=== PATIENT | male | born 1955 | race Caucasian/White ===

== ENCOUNTER 2017-03-02 09:49 | Day surgery (SDC) | payer MEDICARE ==
[2017-03-01 11:36] VITALS: BMI 22.0
[~2017-03-02 09:49] MED LIST: DEXAMETHASONE SOD PHOSPHATE 10 MG/ML 1 ML VIAL IV ONE; HYDROmorphone 1 MG/ML 1 ML SYRINGE IVP PRN; LACTATED RINGERS 1,000 ML IV SCH; LIDOCAINE 1% 20 ML VIAL (10MG/ML) FOR IV START INTRADERMA PRN; ONDANSETRON 4 MG/2 ML VIAL IVP ONE; Pre Op ABX Message 1 EACH MISC MISCELLANE ONE
--- NOTE | 2017-03-02 10:14 | XR ---
EXAMINATION TYPE: XR KUB DATE OF EXAM: 03/02/2017 CLINICAL HISTORY: Bladder stone presurgical study. TECHNIQUE: 2 supine KUB images of the abdomen are obtained. COMPARISON: CT abdomen and pelvis May 13, 2016 FINDINGS: There is left-sided pelvic phlebolith redemonstrated. There is persistent 6 mm oval bladder calculus. There are 3-4 calculi superior L3 vertebra correlates with right-sided renal calculi measu ring up to 6 mm in size likely mid pole level, suspect obscured additional calculi lower pole level r ight kidney near L3-L4 disc space. No definite left-sided nephrolithiasis though overlying fecal kanika en makes evaluation suboptimal. Tiny calculus seen on prior CT. Sclerosis right L5 transverse process articulation with superior iliac bone is redemonstrated. IMPRESSION: Persistent 6 mm bladder calculus unchanged from comparison CT.
[2017-03-02] MEDS ORDERED: MIDAZOLAM 2 MG/2 ML VIAL ONE (13:54)
[2017-03-02] MEDS ORDERED: LIDOCAINE 1% INJ 10MG/ML (20 ML MDV) ONE (13:54)
[2017-03-02] MEDS ORDERED: PROPOFOL 10 MG/ML 20 ML VIAL IV ONE (13:54)
[2017-03-02] MEDS ORDERED: fentaNYL (PF) 50 MCG/ML 2 ML AMP ONE (13:54)
[2017-03-02] MEDS ORDERED: LACTATED RINGERS 1,000 ML IV ONE (14:17)
--- NOTE | 2017-03-02 14:19 | P.OP ---
Date of Procedure: 03/02/17 Preoperative Diagnosis: Neurogenic bladder, bladder stone, small Postoperative Diagnosis: Same Procedure(s) Performed: Cystoscopy with cystolithotripsy, laser Implants: Anesthesia: MAC Surgeon: Elder Painter Estimated Blood Loss (ml): 10 Pathology: other (Stone) Condition: stable Disposition: PACU Indications for Procedure: The patient is a 61-year-old, quadriplegic with a neurogenic bladder on CIC with a bladder stone Operative Findings: Description of Procedure: Patient brought operating suite and placed on the operating table supine position. He is given IV sedation. Placed lithotomy position with sterile prep and drape. Cystoscopy Foroblique lens and an 17-Nigerian sheath identifies a normal urethra. The prostate is not obstructing. There is some scar tissue in the bulbar urethra that is manipulated through with the scope. The bladder is entered. There is a 1-1/2 cm bladder stone. With the 365 laser probe and 4 W of energy the stone was broken into tiny pieces and irrigated out of the bladder. Then of the procedure the bladder strain the cystoscope was removed the patient awake and returned recovery in good condition be discharged home upon recovery. He'll resume his CIC and followed the office in one week.
[2017-03-02 14:29] VITALS: TEMP 97.2
[2017-03-02 15:02] VITALS: RESP 16
[2017-03-02 15:44] VITALS: BP 109/69; PULSE 85
== END 2017-03-02 16:04 | disposition home or self-care (01) ==
LOC: OR 09:49
PROVIDERS: ATTEND Urology
DX: N21.0 Calculus in bladder (principal); N20.0 Calculus of kidney; G82.50 Quadriplegia, unspecified; N31.9 Neuromuscular dysfunction of bladder, unspecified; N52.9 Male erectile dysfunction, unspecified; E78.2 Mixed hyperlipidemia; I71.4 Abdominal aortic aneurysm, without rupture; I25.10 Atherosclerotic heart disease of native coronary artery without angina pectoris; Z99.3 Dependence on wheelchair; Z87.440 Personal history of urinary (tract) infections; I25.2 Old myocardial infarction; Z95.1 Presence of aortocoronary bypass graft; Z79.899 Other long term (current) drug therapy; Z79.51 Long term (current) use of inhaled steroids; Z79.2 Long term (current) use of antibiotics; Z79.82 Long term (current) use of aspirin; Z88.5 Allergy status to narcotic agent; Z88.0 Allergy status to penicillin; Z88.8 Allergy status to other drugs, medicaments and biological substances; Z82.49 Family history of ischemic heart disease and other diseases of the circulatory system
CPT/HCPCS: 82365; 74000; 52317; J2250; J1100; J2405; J2001; J3010; J2704

== ENCOUNTER → 2018-04-03 | Outpatient (CLI) | payer MEDICARE ==
--- NOTE | 2018-04-03 15:01 | CT ---
EXAMINATION TYPE: CT abdomen pelvis wo con DATE OF EXAM: 04/03/2018 COMPARISON: 05/13/2016 HISTORY: Renal stone CT DLP: 756 mGycm Automated exposure control for dose reduction was used. TECHNIQUE: Helical acquisition of images was performed from the lung bases through the pelvis. FINDINGS: LUNG BASES: There is a tiny pericardial effusion and cardiomegaly. Linear changes involving the lung bases suggestive scar or atelectasis. LIVER/GB: Stable indeterminant 1.7 cm hypodense lesion in the peripheral right hepatic lobe as was se en on suggesting a benign etiology such as a cyst or hemangioma. PANCREAS: No significant abnormality is seen. SPLEEN: Splenic granuloma noted. ADRENALS: No significant abnormality is seen. KIDNEYS: Right kidney: There are areas of cortical loss compatible with chronic renal medical disease which co uld been the basis of previous infection or vascular injury. There is a stable 8 mm in adjacent 6 mm mid to lower pole right renal calculi with no evidence of hydronephrosis. Left kidney: Indeterminant 1.2 cm hypodense lesion along the left renal midpole is stable. Appears to been present on 09/11/2014 suggesting probable underlying cyst. Previously noted tiny punctate calci fication within the left kidney not seen with certainty. However, a 1 mm upper pole calculus on coron al image 47 is noted. Additional tiny hypodense area within the mid posterior cortex is too small to characterize axial image 45.. URINARY BLADDER: Bladder wall is thickened correlate for cystitis. PELVIC ADENOPATHY: None visualized. OSSEOUS STRUCTURES: Multilevel severe degenerative disc disease and hypertrophic changes are noted. There is sclerosis involving T11 and T12 vertebral segment. Stable compared to the prior exam. And un changed relative to the CT scan of 2014 and likely discogenic rather than metastatic. Multilevel face t arthropathy, degenerative disc disease and canal stenosis with foraminal encroachment suspected. Arthropathy of the hips noted Calcification within the thecal sac L5 level is retrospectively stable tiny possible calcified mening ioma or calcified disc fragment in the differential diagnosis. BOWEL: Bowel gas pattern nonspecific. There is mild induration of the fat adjacent to the splenic fle xure and left colon which could be associated with a mild colitis or diverticulitis correlate clinica lly. OTHER: Aorta of normal caliber. Asymmetric thickening of the musculature along the right pubic ramus appears chronic and unchanged fr om 2014. Correlate for pain or muscular injury. IMPRESSION: 1. Stable nonobstructing right-sided renal calculus measuring 8 and 6 mm respectively within the katherine x or distal infundibulum. 2. Tiny 1 mm upper pole left renal calculus with no hydronephrosis. 3. Diffuse bladder wall thickening correlate for cystitis. 4. Multilevel degenerative disc disease with multilevel canal stenosis and foraminal encroachment. 5. Stable hepatic and left renal lesions unchanged from prior exam. 6. There is mild induration of the fat adjacent to the splenic flexure of the colon. Correlate for mi ld diverticulitis or colitis. A Yellow level critical message alert has been initiated for Elder Painter MD via the [employer] Critical Results System on 04/03/2018 2:57 PM. This message alert has been sent to Elder Painter MD via the preferences provided by the clinician for the receipt of Radiology Critical Findings. rVita e ID [id number].
== END | disposition home or self-care (01) ==
LOC: RADCTMAIN 13:52
PROVIDERS: ATTEND Urology
DX: N20.0 Calculus of kidney (principal); N32.89 Other specified disorders of bladder; K76.89 Other specified diseases of liver
CPT/HCPCS: 74176

== ENCOUNTER → 2018-05-01 | Outpatient (CLI) | payer MEDICARE ==
[2018-05-01 20:31] LABS: Basophils % (A) 1 %; Eosinophils % (A) 1 %; Lymphocytes % (A) 23 %; MCH 28.3 pg (25.0-35.0); MCHC 32.6 g/dL (31.0-37.0); MCV 86.8 fL (80.0-100.0); Mean Platelet Volume 6.8; Monocytes # (A) 0.4 k/uL (0-1.0); Monocytes % (A) 9 %; Neutrophils # (A) 2.7 k/uL (1.3-7.7); Neutrophils % (A) 65 %; Platelet Count 198 k/uL (150-450); RBC 4.26 m/uL (4.30-5.90); RDW 14.2 % (11.5-15.5); WBC 4.2 k/uL (3.8-10.6)
[2018-05-01 20:38] LABS: Anion Gap 5 mmol/L; Blood Urea Nitrogen 14 mg/dL (9-20); Carbon Dioxide 30 mmol/L (22-30); Chloride 99 mmol/L (98-107); Sodium 134 mmol/L (137-145)
[2018-05-01 20:40] LABS: Appearance,Urine Cloudy (Clear); Bilirubin,Urine Negative (Negative); Blood,Urine Small (Negative); Color,Urine Yellow; Glucose,Urine (UA) Negative (Negative); Hyaline Casts,Urine 13 /lpf (0-2); Ketones,Urine Negative (Negative); Leukocyte Esterase,Urine Large (Negative); Mucus,Urine Rare /hpf; Nitrite,Urine Negative (Negative); PH, Urine 6.5 (5.0-8.0); Protein,Urine Negative (Negative); RBC,Urine 6 /hpf (0-5); Specific Gravity,Urine 1.011 (1.001-1.035); Squamous Epithelial Cell,Urine 1 /hpf (0-4); Urobilinogen,Urine <2.0 mg/dL (<2.0); WBC,Urine >182 /hpf (0-5)
== END | disposition home or self-care (01) ==
LOC: LABMAIN 18:45
PROVIDERS: ATTEND Urology
DX: N20.0 Calculus of kidney (principal)
CPT/HCPCS: 36415; 80051; 81001; 82565; 84520; 85025; 87086

== ENCOUNTER → 2018-10-04 | Outpatient (CLI) | payer MEDICARE ==
--- NOTE | 2018-10-04 15:22 | MR ---
EXAMINATION TYPE: MR cervical spine wo con DATE OF EXAM: 10/04/2018 COMPARISON: None HISTORY: CERVICALGIA TECHNIQUE: Multiplanar, multisequence images of the cervical spine were acquired. FINDINGS: The cervical spine vertebral bodies maintain normal alignment. There is slight vertebral alecia dy height loss of the C6 vertebral body with height loss of 20% at its anterior margin without retrop ulsion or bone marrow edema indicating chronicity.. Bone marrow signal is within normal limits other than a T1/T2 hyperintense vertebral body hemangioma of T1. Multilevel disc desiccation is seen. There is a large T2 hyperintense and T1 hypointense intramedullary lesion within the spinal cord, pos sible syrinx, spanning the C2-C3 intervertebral disc space to the C5 vertebral level measuring 3.8 cm . Abnormal signal within the spinal cord extends from the mid to low to the C7 vertebral level overal l measuring approximately 10.4 cm in length. There is significant volume loss of the spinal cord thro ughout the cervical spine. C2-C3: There is a small central disc ossify complex narrowing the ventral subarachnoid space without significant spinal canal stenosis. Abnormal spinal cord signal is described above. No neural foramina l narrowing. C3-C4: There is a small central disc osteophyte complex, uncovertebral hypertrophy and facet arthropa thy resulting in mild bilateral neural foraminal narrowing. No spinal canal stenosis. Abnormal spinal cord signal is described above. C4-C5: There is a posterior disc osteophyte complex and broad-based disc bulge in combination with li gamentum flavum buckling create moderate spinal canal stenosis. Uncovertebral hypertrophy and facet a rthropathy result in moderate right and mild left neural foraminal narrowing. Abnormal spinal cord si gnal is described above. C5-C6: There is a large broad-based disc bulge, uncovertebral hypertrophy and facet arthropathy resul ting in severe left neural foraminal narrowing, moderate right neural foraminal narrowing, and modera te spinal canal stenosis. Abnormal spinal cord signal is described above. C6-C7: There is a large broad-based disc bulge, facet arthropathy and uncovertebral hypertrophy creat ing severe bilateral neural foraminal narrowing and moderate spinal canal stenosis. Abnormal spinal c ord signal is described above. C7-T1: No evidence for degenerative disc disease. No disc bulge/herniation or protrusion. No Canal stenosis. Foramina are patent bilaterally. IMPRESSION: 1. Large 3.8 cm cystic intramedullary spinal cord lesion in the upper cervical spinal cord with edema and encephalomalacia in a long segment involving the entirety of the cervical spinal cord and extend ing into the lingula. Although there is multilevel spinal canal stenosis, degree of edema and encepha lomalacia are prominent for the degree of spinal canal stenosis and therefore findings could relate t o an acquired syrinx, spinal cord edema, and spinal cord myelomalacia or cystic intramedullary neopla sm. Post contrast T1 weighted axial and sagittal sequences are recommended to evaluate for any enhanc ement. 2. Multilevel spinal canal stenosis and extensive degenerative disc disease with variable degrees of neural foraminal narrowing as described above.
== END ==
LOC: RADMRIMAIN 13:40
PROVIDERS: ATTEND Physical Medicine & Rehabilitation
DX: M48.02 Spinal stenosis, cervical region (principal); M99.71 Connective tissue and disc stenosis of intervertebral foramina of cervical region; M50.30 Other cervical disc degeneration, unspecified cervical region; M46.92 Unspecified inflammatory spondylopathy, cervical region
CPT/HCPCS: 72141

== ENCOUNTER → 2019-02-22 | Outpatient (CLI) | payer MEDICARE ==
--- NOTE | 2019-02-23 07:17 | MR ---
EXAMINATION TYPE: MR cervical spine wo/w con DATE OF EXAM: 02/22/2019 COMPARISON: HISTORY: Cervicalgia TECHNIQUE: Multiplanar, multisequence images of the cervical spine were acquired utilizing 7 mL intravenous Gada vist gadolinium contrast. Diffusion weighted imaging was performed. Cervical vertebra have normal alignment. There is very slight loss of height of C5 vertebra consisten t with osteoporosis. 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 There is endplate spur formation s kike stenosis from C4 to C7. Spinal stenosis is most severe at C6-7. The canal measures 5 mm. I see no discrete mass of the cervical spinal cord. There is significant edema in the cervical cord at C1 a nd C2 posteriorly. The brainstem appears intact. Fourth ventricle appears normal. The contrast images show no pathologic enhancement. IMPRESSION: Multilevel spondylotic changes. Multilevel spinal stenosis that is more severe at C6-7 which measures 5 mm. There is a long syrinx of the cervical spinal cord. This appears unchanged compared to last exam. Spi nal stenosis unchanged. Mild compression of C5 vertebra unchanged. No evidence of tumor of the cervic al spinal cord.
== END | disposition home or self-care (01) ==
LOC: RADMRIMAIN 14:34
PROVIDERS: ATTEND Physical Medicine & Rehabilitation
DX: M48.02 Spinal stenosis, cervical region (principal); G95.0 Syringomyelia and syringobulbia; G95.29 Other cord compression
CPT/HCPCS: 72156; A9585

== ENCOUNTER 2019-05-31 14:09 | Inpatient (IN) | payer MEDICARE ==
[2019-05-31] MEDS ORDERED: SODIUM CHLORIDE 0.9% 500 ML 500 ML IV STA (14:41)
--- NOTE | 2019-05-31 15:10 | ED ---
General Adult HPI - General Chief complaint: Headache Stated complaint: Arm numbness, headache, sent by Time Seen by Provider: 05/31/19 14:33 Source: patient Mode of arrival: wheelchair Limitations: no limitations - History of Present Illness Initial comments: 63-year-old male patient with history significant for cervical injury with quadriplegia, and frequent UTIs presents to the emergency department today for evaluation of headache and left arm numbness. Patient states that he developed headache yesterday at the base of his skull. Patient states the pain was quite severe. Patient states he woke today headache still present but improved. St ates he also had numbness to the left arm. Patient states that he generally has feeling over the volar aspect of the arm however this morning when he woke up felt numb and tingly. Patient states his motor function is intact at his baseline. Patient states he did see his primary care physician today who sent him here for further evaluation. Patient denies any dizziness, blurred vision, double vision, nausea, vomiting. Denies any chest pain, shortness of breath, abdominal pain, constipation, or diarrhea. Patient denies any recent head injury. Denies family history of cardiac disease or CVA. Patient denies any recent rash, fever, chills, back pain, hematuria, dysuria, urinary urgency, ur inary frequency, headache, visual changes, or any other complaints. Patient also has history of frequent urinary tract infections and his physician is requesting urinalysis. - Related Data Home Medications Medication Instructions Recorded Confirmed Oxybutynin Chloride [Ditropan] 5 mg PO HS 03/01/17 05/31/19 Imipramine HCl [Tofranil] 10 mg PO HS 05/31/19 05/31/19 Loratadine [Claritin] 10 mg PO HS 05/31/19 05/31/19 Allergies Allergy/AdvReac Type Severity Reaction Status Date / Time No Known Allergies Allergy Verified 05/31/19 17:20 Review of Systems ROS Statement: Those systems with pertinent positive or pertinent negative responses have been documented in the HPI. ROS Other: All systems not noted in ROS Statement are negative. Past Medical History Past Medical History: Neurologic Disorder Additional Past Medical History / Comment(s): BLADDER STONE -FREQUENT UTI'S QUADRIPLEGIC - FRACTURE OF C6 AND C7 History of Any Multi-Drug Resistant Organisms: None Reported Past Surgical History: Hernia Repair Additional Past Surgical History / Comment(s): LITHROTRIPSY Past Anesthesia/Blood Transfusion Reactions: No Reported Reaction Past Psychological History: No Psychological Hx Reported Smoking Status: Never smoker Past Alcohol Use History: Occasional Past Drug Use History: None Reported - Past Family History Mother Family Medical History: No Reported History General Exam Limitations: no limitations General appearance: alert, in no apparent distress, other (This is a well- developed, well-nourished adult male patient in no acute distress. Vital signs upon presentation are temperature 99.2F, pulse 64, respirations 18, blood pressure 108/70, pulse ox 99% on room air.) Eye exam: Present: normal appearance, PERRL, EOMI. Absent: scleral icterus, conjunctival injection, periorbital swelling ENT exam: Present: normal exam, normal oropharynx, mucous membranes moist Neck exam: Present: normal inspection, full ROM. Absent: tenderness, meningismus, lymphadenopathy Respiratory exam: Present: normal lung sounds bilaterally. Absent: respiratory distress, wheezes, rales, rhonchi, stridor Cardiovascular Exam: Present: regular rate, normal rhythm, normal heart sounds. Absent: systolic murmur, diastolic murmur, rubs, gallop, clicks GI/Abdominal exam: Present: soft, normal bowel sounds. Absent: distended, tenderness, guarding, rebound, rigid Extremities exam: Present: normal inspection, full ROM, normal capillary refill. Absent: tenderness, pedal edema, joint swelling, calf tenderness Neurological exam: Present: alert, oriented X3, other (Strength in the upper extremities is 3/5.) Psychiatric exam: Present: normal affect, normal mood Skin exam: Present: warm, dry, intact, normal color. Absent: rash Course Vital Signs 05/31/19 05/31/19 05/31/19 14:16 15:03 16:00 Temperature 99.2 F Pulse Rate 64 64 71 Respiratory 18 16 20 Rate Blood Pressure 108/70 106/75 106/75 O2 Sat by Pulse 99 98 99 Oximetry 05/31/19 17:00 Temperature Pulse Rate 77 Respiratory 18 Rate Blood Pressure 132/90 O2 Sat by Pulse 99 Oximetry EKG Findings - EKG Comments: EKG Findings:: EKG obtained at normal sinus rhythm with a ventricular rate of 68, TN interval 178, QRS duration 92, QT 388, QTc 412. No evidence of ST elevation or depression. Medical Decision Making - Medical Decision Making 63-year-old male patient presents to the emergency department today for evaluation of left arm numbness, headache, and possible urinary tract infection. Physical examination was unremarkable. He does have quadriplegia from a old C6 to 7 injury. Patient reports that his motor function is normal however he does have tingling and numbness to the left arm. Patient does have sensation. Labs reviewed and are relatively unremarkable other than evidence for urinary tract infection. Patient has had urine cultures in the past positive for pseudomonas aeruginosa. He'll be started on Zosyn. He'll be admitted to the hospital for further evaluation. - Lab Data Result diagrams: 05/31/19 15:00 05/31/19 15:00 Lab Results 05/31/19 05/31/19 05/31/19 Range/Units 15:00 15:00 15:00 WBC 6.8 (3.8-10.6) k/uL RBC 4.09 L (4.30-5.90) m/uL Hgb 11.4 L (13.0-17.5) gm/dL Hct 35.3 L (39.0-53.0) % MCV 86.2 (80.0-100.0) fL MCH 27.8 (25.0-35.0) pg MCHC 32.3 (31.0-37.0) g/dL RDW 14.0 (11.5-15.5) % Plt Count 190 (150-450) k/uL Neutrophils % 81 % Lymphocytes % 9 % Monocytes % 8 % Eosinophils % 1 % Basophils % 1 % Neutrophils # 5.5 (1.3-7.7) k/uL Lymphocytes # 0.6 L (1.0-4.8) k/uL Monocytes # 0.6 (0-1.0) k/uL Eosinophils # 0.0 (0-0.7) k/uL Basophils # 0.0 (0-0.2) k/uL PT 10.1 (9.0-12.0) sec INR 0.9 (<1.2) APTT 28.1 (22.0-30.0) sec Sodium 134 L (137-145) mmol/L Potassium 3.7 (3.5-5.1) mmol/L Chloride 103 (98-107) mmol/L Carbon Dioxide 23 (22-30) mmol/L Anion Gap 8 mmol/L BUN 15 (9-20) mg/dL Creatinine 0.46 L (0.66-1.25) mg/dL Est GFR (CKD-EPI)AfAm >90 (>60 ml/min/1.73 sqM) Est GFR (CKD-EPI)NonAf >90 (>60 ml/min/1.73 sqM) Glucose 88 (74-99) mg/dL Calcium 8.5 (8.4-10.2) mg/dL Magnesium 2.0 (1.6-2.3) mg/dL Total Bilirubin 1.5 H (0.2-1.3) mg/dL AST 18 (17-59) U/L ALT 16 L (21-72) U/L Alkaline Phosphatase 95 (38-126) U/L Troponin I (0.000-0.034) ng/mL Total Protein 6.6 (6.3-8.2) g/dL Albumin 3.5 (3.5-5.0) g/dL Urine Color Urine Appearance (Clear) Urine pH (5.0-8.0) Ur Specific [place] (1.001-1.035) Urine Protein (Negative) Urine Glucose (UA) (Negative) Urine Ketones (Negative) Urine Blood (Negative) Urine Nitrite (Negative) Urine Bilirubin (Negative) Urine Urobilinogen (<2.0) mg/dL Ur Leukocyte Esterase (Negative) Urine RBC (0-5) /hpf Urine WBC (0-5) /hpf Urine WBC Clumps (None) /hpf Ur Squamous Epith Cells (0-4) /hpf Urine Bacteria (None) /hpf Urine Mucus (None) /hpf Urine Yeast (Budding) (None) /hpf 05/31/19 05/31/19 Range/Units 15:00 15:00 WBC (3.8-10.6) k/uL RBC (4.30-5.90) m/uL Hgb (13.0-17.5) gm/dL Hct (39.0-53.0) % MCV (80.0-100.0) fL MCH (25.0-35.0) pg MCHC (31.0-37.0) g/dL RDW (11.5-15.5) % Plt Count (150-450) k/uL Neutrophils % % Lymphocytes % % Monocytes % % Eosinophils % % Basophils % % Neutrophils # (1.3-7.7) k/uL Lymphocytes # (1.0-4.8) k/uL Monocytes # (0-1.0) k/uL Eosinophils # (0-0.7) k/uL Basophils # (0-0.2) k/uL PT (9.0-12.0) sec INR (<1.2) APTT (22.0-30.0) sec Sodium (137-145) mmol/L Potassium (3.5-5.1) mmol/L Chloride (98-107) mmol/L Carbon Dioxide (22-30) mmol/L Anion Gap mmol/L BUN (9-20) mg/dL Creatinine (0.66-1.25) mg/dL Est GFR (CKD-EPI)AfAm (>60 ml/min/1.73 sqM) Est GFR (CKD-EPI)NonAf (>60 ml/min/1.73 sqM) Glucose (74-99) mg/dL Calcium (8.4-10.2) mg/dL Magnesium (1.6-2.3) mg/dL Total Bilirubin (0.2-1.3) mg/dL AST (17-59) U/L ALT (21-72) U/L Alkaline Phosphatase (38-126) U/L Troponin I <0.012 (0.000-0.034) ng/mL Total Protein (6.3-8.2) g/dL Albumin (3.5-5.0) g/dL Urine Color Yellow Urine Appearance Turbid (Clear) Urine pH 6.0 (5.0-8.0) Ur Specific [place] 1.015 (1.001-1.035) Urine Protein Trace H (Negative) Urine Glucose (UA) Negative (Negative) Urine Ketones Negative (Negative) Urine Blood Small H (Negative) Urine Nitrite Positive (Negative) Urine Bilirubin Negative (Negative) Urine Urobilinogen <2.0 (<2.0) mg/dL Ur Leukocyte Esterase Large H (Negative) Urine RBC 12 H (0-5) /hpf Urine WBC >182 H (0-5) /hpf Urine WBC Clumps Many H (None) /hpf Ur Squamous Epith Cells 2 (0-4) /hpf Urine Bacteria Many H (None) /hpf Urine Mucus Rare H (None) /hpf Urine Yeast (Budding) Moderate H (None) /hpf - Radiology Data Radiology results: report reviewed, image reviewed CT brain without contrast is obtained. Report was reviewed in its entirety. Impression by Dr. Huggins shows no acute intracranial hemorrhage or midline shift. There is mild diffuse age-related cerebral atrophy and chronic small vessel ischemic change noted. Two-view x-ray of the chest is obtained. Report is reviewed in its entirety. Impression by Dr. Huggins shows cardiomegaly without acute pulmonary process. Disposition Clinical Impression: Urinary tract infection, Arm paresthesia, left, Headache Disposition: ADMITTED IP TO THIS [facility] Condition: Serious Decision to Admit Reason: Admit from EC Decision Date: 05/31/19 Decision Time: 17:08
--- NOTE | 2019-05-31 15:25 | XR ---
EXAMINATION TYPE: XR chest 2V DATE OF EXAM: 05/31/2019 COMPARISON: CT abdomen pelvis April 03, 2018 HISTORY: Quadriplegia with chest pain. TECHNIQUE: Frontal and lateral views of the chest are obtained. FINDINGS: There is no focal air space opacity, pleural effusion, or pneumothorax seen. The cardiac silhouette size is enlarged. There is endplate sclerosis and spurring T10-T11 level with mild T11 hei ght loss redemonstrated. Findings may reflect product of old infection centered at this level. IMPRESSION: Cardiomegaly without acute pulmonary process.
--- NOTE | 2019-05-31 15:26 | CT ---
EXAMINATION TYPE: CT brain wo con DATE OF EXAM: 05/31/2019 HISTORY: Left arm numbness. CT DLP: 1129.4 mGycm. Automated Exposure Control for Dose Reduction was Utilized. TECHNIQUE: CT scan of the head is performed without contrast. COMPARISON: None. FINDINGS: There is no acute intracranial hemorrhage or midline shift identified. There is diffuse v entricular and sulcal prominence consistent with diffuse age-related cerebral atrophy. There is low- attenuation in the periventricular white matter consistent with chronic small vessel ischemic change. The globes are intact and the visualized sinuses are clear. IMPRESSION: No acute intracranial hemorrhage or midline shift. There is mild diffuse age-related ce rebral atrophy and chronic small vessel ischemic change noted.
[2019-05-31 16:00] LABS: ALT 16 U/L (21-72); AST 18 U/L (17-59); African American GFR (CKD) >90 (>60 ml/min/1.73 sqM); Albumin 3.5 g/dL (3.5-5.0); Alkaline Phosphatase 95 U/L (38-126); Anion Gap 8 mmol/L; Appearance,Urine Turbid (Clear); Bacteria,Urine Many /hpf; Bilirubin,Urine Negative (Negative); Blood Urea Nitrogen 15 mg/dL (9-20); Blood,Urine Small (Negative); Budding Yeast,Urine Moderate /hpf; Calcium 8.5 mg/dL (8.4-10.2); Carbon Dioxide 23 mmol/L (22-30); Chloride 103 mmol/L (98-107); Color,Urine Yellow; Glucose 88 mg/dL (74-99); Glucose,Urine (UA) Negative (Negative); INR 0.9 (<1.2); Ketones,Urine Negative (Negative); Leukocyte Esterase,Urine Large (Negative); Mucus,Urine Rare /hpf; Nitrite,Urine Positive (Negative); Partial Thromboplastin Time 28.1 sec (22.0-30.0); Potassium 3.7 mmol/L (3.5-5.1); Protein,Urine Trace (Negative); Prothrombin Time 10.1 sec (9.0-12.0); RBC,Urine 12 /hpf (0-5); Sodium 134 mmol/L (137-145); Specific Gravity,Urine 1.015 (1.001-1.035); Squamous Epithelial Cell,Urine 2 /hpf (0-4); Total Bilirubin 1.5 mg/dL (0.2-1.3); Total Protein 6.6 g/dL (6.3-8.2); Urobilinogen,Urine <2.0 mg/dL (<2.0); WBC,Urine >182 /hpf (0-5)
[2019-05-31] MEDS ORDERED: PIPERACILLIN-TAZOBACTAM 3.375 GM in SODIUM CHLORIDE 0.9% 100 ML IVPB STA (16:16)
[2019-05-31 16:17] LABS: Basophils % (A) 1 %; Eosinophils % (A) 1 %; HCT 35.3 % (39.0-53.0); HGB 11.4 gm/dL (13.0-17.5); Lymphocytes # (A) 0.6 k/uL (1.0-4.8); Lymphocytes % (A) 9 %; MCH 27.8 pg (25.0-35.0); MCHC 32.3 g/dL (31.0-37.0); MCV 86.2 fL (80.0-100.0); Mean Platelet Volume 7.5; Monocytes # (A) 0.6 k/uL (0-1.0); Monocytes % (A) 8 %; Neutrophils # (A) 5.5 k/uL (1.3-7.7); Neutrophils % (A) 81 %; Platelet Count 190 k/uL (150-450); RBC 4.09 m/uL (4.30-5.90); WBC 6.8 k/uL (3.8-10.6)
[2019-05-31] MEDS ORDERED: NALOXONE 0.4 MG/ML 1 ML VIAL IV PRN (17:08)
[2019-05-31] MEDS ORDERED: ONDANSETRON 4 MG/2 ML VIAL IVP PRN (17:08)
[2019-05-31] MEDS: SODIUM CHLORIDE 0.9% 1,000 ML IV SCH (17:29)
[2019-05-31] MEDS ORDERED: traMADol 50 MG TAB PO PRN (22:06)
[2019-05-31] MEDS: LORATADINE 10 MG TAB PO SCH (22:40)
[2019-05-31] MEDS: IMIPRAMINE 10 MG TAB PO SCH (22:40)
[2019-05-31] MEDS: OXYBUTYNIN CHLORIDE 5 MG TAB PO SCH (22:40)
--- NOTE | 2019-05-31 23:18 | P.HPIM ---
History of Present Illness H&P Date: 05/31/19 Chief Complaint: headache, and foul smelling urine 63-year-old male with history of recurrent UTI secondary to neurogenic bladder from quadriplegia secondary to neck injury 40 years ago Patient presented hospital upon recommendation of his PCP to rule out UTI. Patient has history of recurrent UTI he does straight cathing last urinary tract infection was 5 months ago was positive for Pseudomonas. Patient reports that he was noticing over the past few days that he's having some foul-smelling urine and turbid color. He does straight intermittent cathing at home. He tries to use sterile technique however he is cardioplegic and has some movement in his upper extremities and he would use both upper extremities to hold the straight cath for insertion so I doubt fully sterile technique. He reports some headache at home which is typical for his symptoms of urinary tract infection he had chills and low-grade fever. He denies any dysuria or abdominal pain because he doesn't feel anything secondary to loss of sensation from the level of the nipples and down. He otherwise denies any GI bleeding or hematuria. Denies any nausea or vomiting. Denies any new focal neurologic deficits denies any changes in his vision or hearing. He reports that his headache has improved down to 2 out of 10 in severity just generalized ache headache. In the ED his urine was positive patient was admitted for further treatment with antibiotic and following up cultures for further recommendations Review of Systems Pertinent positives as noted in HPI. All other systems were reviewed and are negative Past Medical History Past Medical History: Neurologic Disorder Additional Past Medical History / Comment(s): BLADDER STONE -FREQUENT UTI'S QUADRIPLEGIC - FRACTURE OF C6 AND C7 History of Any Multi-Drug Resistant Organisms: None Reported Past Surgical History: Hernia Repair Additional Past Surgical History / Comment(s): LITHROTRIPSY Past Anesthesia/Blood Transfusion Reactions: No Reported Reaction Past Psychological History: No Psychological Hx Reported Smoking Status: Never smoker Past Alcohol Use History: Occasional Past Drug Use History: None Reported - Past Family History Mother Family Medical History: No Reported History Additional Family Medical History / Comment(s): No cardiac disease Medications and Allergies Home Medications Medication Instructions Recorded Confirmed Type Oxybutynin Chloride [Ditropan] 5 mg PO HS 03/01/17 05/31/19 History Imipramine HCl [Tofranil] 10 mg PO HS 05/31/19 05/31/19 History Loratadine [Claritin] 10 mg PO HS 05/31/19 05/31/19 History Allergies Allergy/AdvReac Type Severity Reaction Status Date / Time No Known Allergies Allergy Verified 05/31/19 17:20 Physical Exam Vitals: Vital Signs Temp Pulse Pulse Resp BP BP Pulse Ox 05/31/19 21:04 96 05/31/19 19:10 97.9 F 73 17 138/91 97 05/31/19 17:00 77 18 132/90 99 05/31/19 16:00 71 20 106/75 99 05/31/19 15:03 64 16 106/75 98 05/31/19 14:16 99.2 F 64 18 108/70 99 Intake and Output 05/31/19 05/31/19 05/31/19 06:59 14:59 22:59 Other: Weight 72.575 kg Constitutional: No acute distress, conversant, pleasant Eyes: Anicteric sclerae, moist conjunctiva, no lid-lag Pupils equal round reactive to light ENMT: NC/AT Oropharynx clear, no erythema, or exudates Neck: Supple, FROM, no masses, or JVD No carotid bruits No thyromegaly Lungs: Clear to auscultation Clear to percussion Normal respiratory effort, no accessory muscle use Cardiovascular: Heart regular in rate and rhythm, No murmurs, gallops, or rubs No peripheral edema Abdominal: Soft Nontender, no guarding, rebound or rigidity Abdomen moving with respiration Normoactive bowel sounds No hepatomegaly, No splenomegaly No palpable mass No abdominal wall hernia noted Skin: Normal temperature, tone, texture, turgor No induration No subcutaneous nodules No rash, lesions No ulcers Extremities: No digital cyanosis No clubbing Pedal pulses intact and symmetrical Radial pulses intact and symmetrical No calf tenderness Psychiatric: Alert and oriented to person, place and time Appropriate affect fair judgment Neuro patient is quadriplegic with some movement in his bilateral upper extremity Sensation to light touch is absent from the level of the nipples and down, and only present on the medial aspect of bilateral upper extremities Cranial nerves II-XII grossly intact No focal sensory deficits Lymphatics: no palpable cervical or supraclavicular , or inguinal lymph nodes Results CBC & Chem 7: 05/31/19 15:00 05/31/19 15:00 Labs: Abnormal Lab Results - Last 24 Hours (Table) 05/31/19 05/31/19 05/31/19 Range/Units 15:00 15:00 15:00 RBC 4.09 L (4.30-5.90) m/uL Hgb 11.4 L (13.0-17.5) gm/dL Hct 35.3 L (39.0-53.0) % Lymphocytes # 0.6 L (1.0-4.8) k/uL Sodium 134 L (137-145) mmol/L Creatinine 0.46 L (0.66-1.25) mg/dL Total Bilirubin 1.5 H (0.2-1.3) mg/dL ALT 16 L (21-72) U/L Urine Protein Trace H (Negative) Urine Blood Small H (Negative) Ur Leukocyte Esterase Large H (Negative) Urine RBC 12 H (0-5) /hpf Urine WBC >182 H (0-5) /hpf Urine WBC Clumps Many H (None) /hpf Urine Bacteria Many H (None) /hpf Urine Mucus Rare H (None) /hpf Urine Yeast (Budding) Moderate H (None) /hpf Assessment and Plan Assessment: 63 -year-old male quadriplegic secondary to neck injury 40 years ago, neurogenic bladder with intermittent catheterization at home with recurrent UTIs. Patient admitted as an inpatient with anticipated length of stay more than 2 mid nights for UTI with history of Pseudomonas patient was started on Zosyn and supportive care follow-up cultures Plan: recurrent UTI, history of pseudomonas follow up cultures intermittent straight cath zosyn symptomatic control of fever chronic conditions quadreplegia continue home meds DVT ppx heparin sc tid CODE STATUS: No code Discussed with: Patient, ER, RN Anticipated length of stay more than [address]: Home A total of 60 minutes was spent on the care of this complex patient more than 50% of the time was spent in counseling and care coordination.
--- NOTE | 2019-05-31 23:31 | P.HPADDEND ---
H&P Addendum H&P Addendum Date: 05/31/19 Advanced Care Planning Active diagnoses: Acute recurrent UTI with history of Pseudomonas Background: The patient was admitted for treatment of UTI Discussion: Person(s) present and participating in discussion: The patient, and myself. Summary: Patient is quadriplegic for the past 4 years secondary to injury to the neck, he does intermittent straight cathing at home he lives alone at a private home, he rented a room for a roommate. Patient reports that he gets help from his sister who visits occasionally to clean the house. He does self intermittent catheterization as he can move his upper extremities for certain extent and he has been doing this for the past 4 years however he gets frequent UTI. I explained to him that probably his technique not very sterile. Patient elected to be a no code in case he experiences cardiopulmonary arrest. Patient wants to go home after discharge and refused home health care evaluation or referral. He claims that he got everything set up at his home and that he has never been hospitalized except for back in 1981 when he had the pneumonia. Patient has been self-sufficient he manages to transfer himself from bed to wheelchair and to bathe himself and even cooks sometimes. Time spent: Total time spent face to face in education and discussion directly related to advanced care plannin minutes
[2019-05-31] MEDS: PIPERACILLIN-TAZOBACTAM 3.375 GM in SODIUM CHLORIDE 0.9% 100 ML IVPB SCH (23:55)
[2019-05-31] MEDS: HEPARIN SODIUM,PORCINE 5,000 UNIT/ML 1 ML VIAL SQ SCH (23:56)
[2019-06-01] MEDS: PIPERACILLIN-TAZOBACTAM 3.375 GM in SODIUM CHLORIDE 0.9% 100 ML IVPB SCH ×3 (07:54→23:32)
[2019-06-01] MEDS: HEPARIN SODIUM,PORCINE 5,000 UNIT/ML 1 ML VIAL SQ SCH ×3 (07:54→23:31)
--- NOTE | 2019-06-01 13:13 | P.PN ---
Subjective Progress Note Date: 06/01/19 Principal diagnosis: UTI Patient was seen and examined. No acute events overnight. Patient denies any symptoms currently. States that his urine appeared to be infected and was malodorous but patient states that he feels fine. He denies any chest pain, shortness of breath or palpitations. No nausea or vomiting. No fever or chills. Objective - Vital Signs Vital signs: Vital Signs Temp 98.8 F 06/01/19 07:05 Pulse 79 06/01/19 07:05 Resp 16 06/01/19 07:05 BP 120/78 06/01/19 07:57 Pulse Ox 97 06/01/19 07:05 Intake & Output 05/31/19 06/01/19 06/01/19 18:59 06:59 18:59 Intake Total 1050 220 Output Total 200 900 Balance 850 -680 Weight 72.575 kg Intake: Intake, IV Titration 950 Amount Piperacillin-Tazobactam 3 100 .375 gm In Sodium Chloride 0.9% 100 ml @ 25 mls/hr IVPB Q8HR [facility]FF[facility] Rx# :[id number] Sodium Chloride 0.9% 1, 850 000 ml @ 100 mls/hr IV . Q10H TIFFANIE Rx#:[id number] Oral 100 220 Output: Urine 200 900 Other: Voiding Method Self-Catheterization Self-Catheterization # Voids 1 1 # Bowel Movements 1 - Exam General: [non toxic], [no distress], [appears at stated age] Derm: [warm], [dry] Head: [atraumatic], [normocephalic], [symmetric] Eyes: [EOMI], [no lid lag], [anicteric sclera] Mouth: [no lip lesion], [mucus membranes moist] Cardiovascular: [S1S2 reg], [no murmur], [positive posterior tibial pulse bilateral], Lungs: [CTA bilateral], [no rhonchi, no rales] , [no accessory muscle use] Abdominal: [soft], [ nontender to palpation], [no guarding], [no appreciable organomegaly] Ext: [no gross muscle atrophy], [no edema], [no contractures] Neuro: [Limited movement in the upper extremity. 0 strength in lower extremities. Decreased sensation to touch below the nipples. Cranial nerves II-12 grossly intact.] Psych: [Alert], [oriented], [appropriate affect] - Labs CBC & Chem 7: 05/31/19 15:00 05/31/19 15:00 Labs: Abnormal Lab Results - Last 24 Hours (Table) 05/31/19 05/31/19 05/31/19 Range/Units 15:00 15:00 15:00 RBC 4.09 L (4.30-5.90) m/uL Hgb 11.4 L (13.0-17.5) gm/dL Hct 35.3 L (39.0-53.0) % Lymphocytes # 0.6 L (1.0-4.8) k/uL Sodium 134 L (137-145) mmol/L Creatinine 0.46 L (0.66-1.25) mg/dL Total Bilirubin 1.5 H (0.2-1.3) mg/dL ALT 16 L (21-72) U/L Urine Protein Trace H (Negative) Urine Blood Small H (Negative) Ur Leukocyte Esterase Large H (Negative) Urine RBC 12 H (0-5) /hpf Urine WBC >182 H (0-5) /hpf Urine WBC Clumps Many H (None) /hpf Urine Bacteria Many H (None) /hpf Urine Mucus Rare H (None) /hpf Urine Yeast (Budding) Moderate H (None) /hpf Microbiology - Last 24 Hours (Table) 05/31/19 15:00 Urine Culture - Preliminary Urine,Voided Assessment and Plan Assessment: Assessment and Plan UTI, history of Pseudomonas, related to quadriplegia, intermittent catheter ization at home Left arm numbness with cervical pain Does not meet sepsis. UA showing large leukocyte esterase. Patient afebrile with no leukocytosis. Previous urine cultures positive Pseudomonas sensitive to Zosyn. Plans: Continue Zosyn. Continue normal saline at 100 mL per hour. Zofran as needed for nausea or vomiting. Follow urine culture. Follow blood culture. Being worked up by orthopedic surgery in the outpatient setting. States he had an MRI in the past that showed impingement of nerves. CT brain shows no acute intracranial hemorrhage. Troponin less than 0.012 with EKG showing normal sinus rhythm. Plans: Likely cervical spine related. Need adequate outpatient follow- up with orthopedic surgery. Trend troponin tomorrow morning to rule out ACS.
[2019-06-01] MEDS: SODIUM CHLORIDE 0.9% 1,000 ML IV SCH ×2 (14:17→20:27)
[2019-06-01] MEDS: IMIPRAMINE 10 MG TAB PO SCH (20:24)
[2019-06-01] MEDS: OXYBUTYNIN CHLORIDE 5 MG TAB PO SCH (20:24)
[2019-06-01] MEDS: LORATADINE 10 MG TAB PO SCH (20:24)
[2019-06-01 20:44] LABS: Glucose,Whole Blood 122 mg/dL (75-99)
[2019-06-02 07:12] LABS: HCT 34.1 % (39.0-53.0); HGB 11.7 gm/dL (13.0-17.5); MCH 29.6 pg (25.0-35.0); MCHC 34.4 g/dL (31.0-37.0); MCV 86.1 fL (80.0-100.0); Platelet Count 202 k/uL (150-450); RBC 3.96 m/uL (4.30-5.90); RDW 14.8 % (11.5-15.5); WBC 4.3 k/uL (3.8-10.6)
[2019-06-02 07:22] LABS: African American GFR (CKD) >90 (>60 ml/min/1.73 sqM); Anion Gap 6 mmol/L; Blood Urea Nitrogen 9 mg/dL (9-20); Calcium 8.3 mg/dL (8.4-10.2); Carbon Dioxide 24 mmol/L (22-30); Chloride 109 mmol/L (98-107); Glucose 103 mg/dL (74-99); Potassium 3.6 mmol/L (3.5-5.1); Sodium 139 mmol/L (137-145)
[2019-06-02] MEDS: HEPARIN SODIUM,PORCINE 5,000 UNIT/ML 1 ML VIAL SQ SCH ×2 (09:16→16:54)
[2019-06-02] MEDS: SODIUM CHLORIDE 0.9% 1,000 ML IV SCH ×2 (09:16→20:20)
[2019-06-02] MEDS: PIPERACILLIN-TAZOBACTAM 3.375 GM in SODIUM CHLORIDE 0.9% 100 ML IVPB SCH ×2 (09:16→16:55)
--- NOTE | 2019-06-02 11:07 | P.PN ---
Subjective Progress Note Date: 06/02/19 Principal diagnosis: UTI Patient was seen and examined. No acute events overnight. Patient denies any chest pain, shortness of breath or palpitations. States that he feels normal. Previous complaints of cervical neck pain with left arm numbness has completely resolved since admission. Straight cath himself intermittently. States that his urine has been malodorous over the last couple of days. Objective - Vital Signs Vital signs: Vital Signs Temp 97.7 F 06/02/19 07:00 Pulse 63 06/02/19 07:00 Resp 16 06/02/19 08:00 BP 136/93 06/02/19 07:00 Pulse Ox 96 06/02/19 07:00 Intake & Output 06/01/19 06/02/19 06/02/19 18:59 06:59 18:59 Intake Total 440 236 180 Output Total 2375 1600 650 Balance -1935 -1364 -470 Intake: Oral 440 236 180 Output: Urine 2375 1600 650 Other: Voiding Method Self-Catheterization Self-Catheterization # Voids 1 1 # Bowel Movements 1 - Exam General: [non toxic], [no distress], [appears at stated age] Derm: [warm], [dry] Head: [atraumatic], [normocephalic], [symmetric] Eyes: [EOMI], [no lid lag], [anicteric sclera] Mouth: [no lip lesion], [mucus membranes moist] Cardiovascular: [S1S2 reg], [no murmur], [positive posterior tibial pulse bilateral], Lungs: [CTA bilateral], [no rhonchi, no rales] , [no accessory muscle use] Abdominal: [soft], [ nontender to palpation], [no guarding], [no appreciable organomegaly] Ext: [no gross muscle atrophy], [no edema] Neuro: [Limited movement in the upper extremity with contractures. 0 strength in lower extremities. Decreased sensation to touch below the nipples. Decreased sensation over the lateral aspect of the upper extremities] Psych: [Alert], [oriented], [appropriate affect] - Labs CBC & Chem 7: 06/02/19 06:19 06/02/19 06:19 Labs: Abnormal Lab Results - Last 24 Hours (Table) 06/01/19 06/02/19 06/02/19 Range/Units 20:33 06:19 06:19 RBC 3.96 L (4.30-5.90) m/uL Hgb 11.7 L (13.0-17.5) gm/dL Hct 34.1 L (39.0-53.0) % Chloride 109 H (98-107) mmol/L Creatinine 0.54 L (0.66-1.25) mg/dL Glucose 103 H (74-99) mg/dL POC Glucose (mg/dL) 122 H (75-99) mg/dL Calcium 8.3 L (8.4-10.2) mg/dL Microbiology - Last 24 Hours (Table) 05/31/19 17:23 Blood Culture - Preliminary Blood No Growth after 24 hours Assessment and Plan Assessment: Assessment and Plan UTI, history of Pseudomonas, related to quadriplegia, intermittent catheterization at home Left arm numbness with cervical pain Does not meet sepsis. UA showing large leukocyte esterase. Patient afebrile with no leukocytosis. Previous urine cultures positive Pseudomonas sensitive to Zosyn. Plans: Continue Zosyn. Continue normal saline at 100 mL per hour. Zofran as needed for nausea or vomiting. Follow urine culture. Follow blood culture. Being worked up by orthopedic surgery in the outpatient setting. States he had an MRI in the past that showed impingement of nerves. CT brain shows no acute intracranial hemorrhage. Troponin less than 0.012 2 with EKG showing normal sinus rhythm. Plans: Likely cervical spine related. Need adequate outpatient follow-up with orthopedic surgery. ACS ruled out. [Cultures currently negative. Waiting for final urine cultures with sensitivities to transition patient to oral antibiotics. Likely DC in 1-2 days.]
[2019-06-02] MEDS ORDERED: HYDROcodone/APAP 5-325MG 1 EACH TAB PO PRN (15:59)
[2019-06-02] MEDS: OXYBUTYNIN CHLORIDE 5 MG TAB PO SCH (19:41)
[2019-06-02] MEDS: IMIPRAMINE 10 MG TAB PO SCH (19:41)
[2019-06-02] MEDS: LORATADINE 10 MG TAB PO SCH (19:41)
[2019-06-03] MEDS: PIPERACILLIN-TAZOBACTAM 3.375 GM in SODIUM CHLORIDE 0.9% 100 ML IVPB SCH ×2 (01:18→07:48)
[2019-06-03] MEDS: HEPARIN SODIUM,PORCINE 5,000 UNIT/ML 1 ML VIAL SQ SCH ×2 (01:18→07:48)
[2019-06-03] MEDS: SODIUM CHLORIDE 0.9% 1,000 ML IV SCH (05:05)
[2019-06-03 08:09] VITALS: BP 157/95; PULSE 82; RESP 16; TEMP 98.6
--- NOTE | 2019-06-03 11:27 | P.DS ---
Providers Date of admission: 06/02/19 14:05 Expected date of discharge: 06/03/19 Attending physician: Darek Carreon MD Primary care physician: Physician Nonstaff Hospital Course: 63-year-old male with history of recurrent UTI secondary to neurogenic bladder from quadriplegia secondary to neck injury 40 years ago Patient presented hospital upon recommendation of his PCP to rule out UTI. Patient has history of recurrent UTI he does straight cathing last urinary tract infection was 5 months ago was positive for Pseudomonas. Patient reports that he was noticing over the past few days that he's having some foul-smelling urine and turbid color. He does straight intermittent cathing at home. Patient did not meet sepsis criteria. Urinalysis showed large leukocyte esterase. Patient is afebrile with no leukocytosis. We have previous urine cultures that were positive for Pseudomonas sensitive to Zosyn. Patient was started on Zosyn and normal saline at 100 mL per hour. Return urine cultures were positive for E. coli sensitive to nitrofurantoin. Blood cultures were prelim negative at 48 hours. Patient also had previous complaints of cervical neck pain with left arm tingling. He had reported he was seeing his orthopedic surgeon and underwent MRI in the past that showed impingement of nerves. CT of the head was obtained which ruled out intracranial hemorrhage. Troponin was less than 0.0122 with EKG showed normal sinus rhythm and ACS was ruled out. Patient was seen and examined. No acute events overnight. His rhythm complaints today. Feeling normal. He denies any chest pain, shortness of breath or palpitations. No nausea or vomiting. No fever or chills. General: [non toxic], [no distress], [appears at stated age] Derm: [warm], [dry] Head: [atraumatic], [normocephalic], [symmetric] Eyes: [EOMI], [no lid lag], [anicteric sclera] Mouth: [no lip lesion], [mucus membranes moist] Cardiovascular: [S1S2 reg], [no murmur], [positive posterior tibial pulse bilateral], Lungs: [CTA bilateral], [no rhonchi, no rales] , [no accessory muscle use] Abdominal: [soft], [ nontender to palpation], [no guarding], [no appreciable organomegaly] Ext: [no gross muscle atrophy], [no edema], [no contractures] Neuro: [Limited movement in the upper extremity. 0 strength in lower extremities. Decreased sensation to touch below the nipples. Cranial nerves II-12 grossly intact.] Psych: [Alert], [oriented], [appropriate affect] Assessment and Plan UTI, history of Pseudomonas, related to quadriplegia, intermittent catheterization at home Left arm numbness with cervical pain Does not meet sepsis. UA showing large leukocyte esterase. Patient afebrile with no leukocytosis. Previous urine cultures positive Pseudomonas sensitive to Zosyn. Blood cultures negative at 48 hours. Urine culture positive for E. coli sensitive to nitrofurantoin. Plans: Transition Zosyn to nitrofurantoin. Continue normal saline at 100 mL per hour. Zofran as needed for nausea or vomiting. Being worked up by orthopedic surgery in the outpatient setting. States he had an MRI in the past that showed impingement of nerves. CT brain shows no acute intracranial hemorrhage. Troponin less than 0.012 2 with EKG showing normal sinus rhythm, ACS was ruled out. Plans: Likely cervical spine related. Need adequate outpatient follow-up with orthopedic surgery. [Patient be discharged home today on nitrofurantoin to complete a total of 7 days antibiotics for complicated UTI.] Pertinent Studies: Chest x-ray, brain CT Patient Condition at Discharge: Stable Plan - Discharge Summary Discharge Rx Participant: Yes New Discharge Prescriptions: New Nitrofurantoin Monohyd/M-Cryst [Macrobid] 100 mg PO Q12HR #10 cap Continue Oxybutynin Chloride [Ditropan] 5 mg PO HS Loratadine [Claritin] 10 mg PO HS Imipramine HCl [Tofranil] 10 mg PO HS Discharge Medication List Oxybutynin Chloride [Ditropan] 5 mg PO HS 03/01/17 [History] Imipramine HCl [Tofranil] 10 mg PO HS 05/31/19 [History] Loratadine [Claritin] 10 mg PO HS 05/31/19 [History] Nitrofurantoin Monohyd/M-Cryst [Macrobid] 100 mg PO Q12HR #10 cap 06/03/19 [Rx] Follow up Appointment(s)/Referral(s): Nonstaff,Physician [Primary Care Provider] - 1-2 days Activity/Diet/Wound Care/Special Instructions: Diet: Regular Follow-up PCP within 1-2 days of discharge. Take all medications as advised. Follow-up with your orthopedic surgeon regarding workup for your cervical neck pain. Discharge Disposition: HOME SELF-CARE
--- NOTE | 2019-06-08 03:42 | CDI ---
Documentation Clarification Form Date: 06/08/19 From: Servando Garzon Phone: call [phone] Admit Date: 06/02/2019 2:05:00 PM Patient Name: Charlie Moreira Visit Number: [id number] Discharge Date: 06/03/2019 1:44:00 PM ATTENTION: The Clinical Documentation Specialists (CDI) and [facility] Coding Staff appreciate your assistance in clarifying documentation. Please respond to the clarification below the line at the bottom and electronically sign. The CDI & [facility] Coding staff will review the response and follow-up if needed. Please note: Queries are made part of the Legal Health Record. If you have any questions, please contact the author of this message via ITS. Dr. Zack Amaral Your patient has the documented diagnosis of UTI and using intermittent straight cath at home in your notes dated 06/01,06/02 A relationship between diagnoses cannot be assumed unless documented as such by the attending physician. In order to capture the severity of condition; please document the relationship, if any, between these diagnoses. History/Risk Factors: UTI, Quadriplegia. Clinical Indicators: urine culture positive e.coli Treatment: zosyn, nitrofurantoin. Please clarify and document your clinical opinion in the progress notes and discharge summary if any relationship (due to, caused by, secondary to) exists between these two diagnoses. Please include clinical findings supporting your diagnosis. UTi due to straight cath Other explanation of clinical findings (please specify) Unable to determine (no explanation for clinical findings) due to combination of straight cath and neurogenic bladder MTDD
== END 2019-06-03 13:44 | disposition home or self-care (01) | DRG 698 ==
LOC: EC 14:09 → 4SSUR 16:51 → OBSVTOIN 06-02 14:05
PROVIDERS: ADMIT Family Medicine; ATTEND Family Medicine
DX: T83.518A Infection and inflammatory reaction due to other urinary catheter, initial encounter (principal); G82.50 Quadriplegia, unspecified; N39.0 Urinary tract infection, site not specified; N31.9 Neuromuscular dysfunction of bladder, unspecified; B96.20 Unspecified Escherichia coli [E. coli] as the cause of diseases classified elsewhere; Z87.440 Personal history of urinary (tract) infections
CPT/HCPCS: 36415; 70450; 71046; 80048; 80053; 81001; 83735; 84484; 85025; 85027; 85610; 85730; 87040; 87077; 87086; 87186; 93005; 94760; 96360; 96361; 99285

== ENCOUNTER → 2019-08-03 | Outpatient (CLI) | payer MEDICARE ==
--- NOTE | 2019-08-05 20:18 | XR ---
EXAMINATION TYPE: XR KUB DATE OF EXAM: 08/03/2019 CLINICAL DATA: 63-year-old male N20.0, [facility] COMPARISON: 03/02/2017 FINDINGS: Degenerative changes lower lumbar spine. Pelvic phleboliths. Some of these densities in the pelvis, p articularly on the right could potentially represent a ureteral calculus and would need clinical tiffanie elation. Moderate stool burden. Nonobstructive bowel gas pattern. IMPRESSION: Pelvic phleboliths. Moderate stool burden. Nonobstructive bowel gas pattern.
== END | disposition home or self-care (01) ==
LOC: RADXRMAIN 16:09
PROVIDERS: ATTEND Urology
DX: I87.8 Other specified disorders of veins (principal); R19.5 Other fecal abnormalities
CPT/HCPCS: 74018

== ENCOUNTER 2020-03-05 12:09 | Emergency (ER) | payer MEDICARE ==
[2020-03-05] MEDS ORDERED: SODIUM CHLORIDE 0.9% 1,000 ML IV STA (12:41)
--- NOTE | 2020-03-05 12:46 | ED ---
General Adult HPI - General Chief complaint: Recheck/Abnormal Lab/Rx Stated complaint: Low BP Time Seen by Provider: 03/05/20 12:10 Source: patient, RN notes reviewed, old records reviewed Mode of arrival: wheelchair Limitations: no limitations - History of Present Illness Initial comments: This is a 64-year-old male who presents emergency department with past medical history significant for quadriplegia. Patient one week ago had a procedure to have the stone removed out of his bladder. Patient was feeling lightheaded over the last couple of days when he saw his doctor today and his blood pressure was systolically in the 80s and the physician wanted the patient evaluated the emergency department. Patient states currently he feels just a very little bit lightheaded he denies any headache he denies any numbness or focal weakness. Patient denies any chest pain difficulty breathing shortest breath. Patient has any recent fever chills or cough. Patient states his urine appears to be normal. Patient states the color returned urine is been unchanged he does not believe he has an infection but he does self cath. - Related Data Home Medications Medication Instructions Recorded Confirmed Oxybutynin Chloride [Ditropan] 5 mg PO HS 03/01/17 03/05/20 Imipramine HCl [Tofranil] 10 mg PO HS 05/31/19 03/05/20 Cephalexin [Keflex] 250 mg PO HS 03/05/20 03/05/20 Nitrofurantoin Monohyd/M-Cryst 100 mg PO Q12HR PRN 03/05/20 03/05/20 [Macrobid] tiZANidine [Zanaflex] 4 mg PO HS 03/05/20 03/05/20 Allergies Allergy/AdvReac Type Severity Reaction Status Date / Time No Known Allergies Allergy Verified 03/05/20 13:03 Review of Systems ROS Statement: Those systems with pertinent positive or pertinent negative responses have been documented in the HPI. ROS Other: All systems not noted in ROS Statement are negative. Past Medical History Past Medical History: Neurologic Disorder Additional Past Medical History / Comment(s): BLADDER STONE -FREQUENT UTI'S QUADRIPLEGIC - FRACTURE OF C6 AND C7 History of Any Multi-Drug Resistant Organisms: None Reported Past Surgical History: Hernia Repair Additional Past Surgical History / Comment(s): LITHROTRIPSY , stone in bladder removed. Past Anesthesia/Blood Transfusion Reactions: No Reported Reaction Past Psychological History: No Psychological Hx Reported Smoking Status: Never smoker Past Alcohol Use History: Occasional Past Drug Use History: None Reported - Past Family History Mother Family Medical History: No Reported History Additional Family Medical History / Comment(s): No cardiac disease General Exam - General Exam Comments Initial Comments: GENERAL: Patient is well-developed and well-nourished. Patient is nontoxic and well- hydrated and is in no acute distress. ENT: Neck is soft and supple. No significant lymphadenopathy is noted. Oropharynx is clear. Moist mucous membranes. Neck has full range of motion without eliciting any pain. EYES: The sclera were anicteric and conjunctiva were pink and moist. Extraocular movements were intact and pupils were equal round and reactive to light. Eyelids were unremarkable. PULMONARY: Unlabored respirations. Good breath sounds bilaterally. No audible rales rhonc hi or wheezing was noted. CARDIOVASCULAR: There is a regular rate and rhythm without any murmurs gallops or rubs. ABDOMEN: Soft and nontender with normal bowel sounds. SKIN: Skin is clear with no lesions or rashes and otherwise unremarkable. NEUROLOGIC: Patient is alert and oriented x3. Cranial nerves II through XII are grossly intact. Patient's speech is normal. Patient is able to move both of his upper extremities but it is limited and fine motor function which she states is at his baseline. MUSCULOSKELETAL: Patient is unable to move either of his legs she does have some range of motion of his arms and he states it is at his baseline. LYMPHATICS: No significant lymphadenopathy is noted PSYCHIATRIC: Normal psychiatric evaluation. Limitations: no limitations Course Vital Signs 03/05/20 03/05/20 12:10 13:24 Temperature 97.8 F Pulse Rate 68 57 L Respiratory 18 16 Rate Blood Pressure 86/51 142/94 O2 Sat by Pulse 97 97 Oximetry Medical Decision Making - Medical Decision Making EKG shows sinus bradycardia 54 bpm NH interval 292 QRS is 404 QT interval 432 QTC is 409. Patient's EKG shows no ST segment elevation or depression. I'll back into reevaluate the patient is asymptomatic. Patient's blood pressure was within normal range. - Lab Data Result diagrams: 03/05/20 12:55 03/05/20 12:55 Lab Results 03/05/20 03/05/20 03/05/20 Range/Units 12:55 12:55 12:55 WBC 5.8 (3.8-10.6) k/uL RBC 4.08 L (4.30-5.90) m/uL Hgb 12.0 L (13.0-17.5) gm/dL Hct 36.0 L (39.0-53.0) % MCV 88.4 (80.0-100.0) fL MCH 29.4 (25.0-35.0) pg MCHC 33.3 (31.0-37.0) g/dL RDW 13.7 (11.5-15.5) % Plt Count 270 (150-450) k/uL Neutrophils % 64 % Lymphocytes % 23 % Monocytes % 8 % Eosinophils % 1 % Basophils % 1 % Neutrophils # 3.7 (1.3-7.7) k/uL Lymphocytes # 1.3 (1.0-4.8) k/uL Monocytes # 0.4 (0-1.0) k/uL Eosinophils # 0.1 (0-0.7) k/uL Basophils # 0.1 (0-0.2) k/uL PT 9.8 (9.0-12.0) sec INR 0.9 (<1.2) APTT 24.9 (22.0-30.0) sec Sodium 132 L (137-145) mmol/L Potassium 4.1 (3.5-5.1) mmol/L Chloride 102 (98-107) mmol/L Carbon Dioxide 22 (22-30) mmol/L Anion Gap 8 mmol/L BUN 11 (9-20) mg/dL Creatinine 0.45 L (0.66-1.25) mg/dL Est GFR (CKD-EPI)AfAm >90 (>60 ml/min/1.73 sqM) Est GFR (CKD-EPI)NonAf >90 (>60 ml/min/1.73 sqM) Glucose 96 (74-99) mg/dL Plasma Lactic Acid [place] (0.7-2.0) mmol/L Calcium 8.8 (8.4-10.2) mg/dL Magnesium 2.0 (1.6-2.3) mg/dL Total Bilirubin 0.6 (0.2-1.3) mg/dL AST 19 (17-59) U/L ALT 12 (4-49) U/L Alkaline Phosphatase 90 (38-126) U/L Troponin I (0.000-0.034) ng/mL Total Protein 6.7 (6.3-8.2) g/dL Albumin 3.6 (3.5-5.0) g/dL Urine Color Urine Appearance (Clear) Urine pH (5.0-8.0) Ur Specific [place] (1.001-1.035) Urine Protein (Negative) Urine Glucose (UA) (Negative) Urine Ketones (Negative) Urine Blood (Negative) Urine Nitrite (Negative) Urine Bilirubin (Negative) Urine Urobilinogen (<2.0) mg/dL Ur Leukocyte Esterase (Negative) Urine RBC (0-5) /hpf Urine WBC (0-5) /hpf Urine Bacteria (None) /hpf Urine Mucus (None) /hpf 03/05/20 03/05/20 03/05/20 Range/Units 12:55 12:55 14:23 WBC (3.8-10.6) k/uL RBC (4.30-5.90) m/uL Hgb (13.0-17.5) gm/dL Hct (39.0-53.0) % MCV (80.0-100.0) fL MCH (25.0-35.0) pg MCHC (31.0-37.0) g/dL RDW (11.5-15.5) % Plt Count (150-450) k/uL Neutrophils % % Lymphocytes % % Monocytes % % Eosinophils % % Basophils % % Neutrophils # (1.3-7.7) k/uL Lymphocytes # (1.0-4.8) k/uL Monocytes # (0-1.0) k/uL Eosinophils # (0-0.7) k/uL Basophils # (0-0.2) k/uL PT (9.0-12.0) sec INR (<1.2) APTT (22.0-30.0) sec Sodium (137-145) mmol/L Potassium (3.5-5.1) mmol/L Chloride (98-107) mmol/L Carbon Dioxide (22-30) mmol/L Anion Gap mmol/L BUN (9-20) mg/dL Creatinine (0.66-1.25) mg/dL Est GFR (CKD-EPI)AfAm (>60 ml/min/1.73 sqM) Est GFR (CKD-EPI)NonAf (>60 ml/min/1.73 sqM) Glucose (74-99) mg/dL Plasma Lactic Acid [place] 0.6 L (0.7-2.0) mmol/L Calcium (8.4-10.2) mg/dL Magnesium (1.6-2.3) mg/dL Total Bilirubin (0.2-1.3) mg/dL AST (17-59) U/L ALT (4-49) U/L Alkaline Phosphatase (38-126) U/L Troponin I <0.012 (0.000-0.034) ng/mL Total Protein (6.3-8.2) g/dL Albumin (3.5-5.0) g/dL Urine Color Light Yellow Urine Appearance Clear (Clear) Urine pH 7.0 (5.0-8.0) Ur Specific [place] 1.006 (1.001-1.035) Urine Protein Negative (Negative) Urine Glucose (UA) Negative (Negative) Urine Ketones Negative (Negative) Urine Blood Negative (Negative) Urine Nitrite Negative (Negative) Urine Bilirubin Negative (Negative) Urine Urobilinogen <2.0 (<2.0) mg/dL Ur Leukocyte Esterase Small H (Negative) Urine RBC 1 (0-5) /hpf Urine WBC 5 (0-5) /hpf Urine Bacteria Rare H (None) /hpf Urine Mucus Rare H (None) /hpf Disposition Clinical Impression: Hypotensive episode Disposition: HOME SELF-CARE Condition: Good Instructions (If sedation given, give patient instructions): Hypotension (ED) Is patient prescribed a controlled substance at d/c from ED?: No Referrals: Cecile Leigh MD [Primary Care Provider] - 1-2 days Time of Disposition: 15:13
[2020-03-05 13:09] LABS: Basophils # (A) 0.1 k/uL (0-0.2); Basophils % (A) 1 %; Eosinophils # (A) 0.1 k/uL (0-0.7); Eosinophils % (A) 1 %; Lymphocytes # (A) 1.3 k/uL (1.0-4.8); Lymphocytes % (A) 23 %; MCH 29.4 pg (25.0-35.0); MCHC 33.3 g/dL (31.0-37.0); MCV 88.4 fL (80.0-100.0); Mean Platelet Volume 6.9; Monocytes # (A) 0.4 k/uL (0-1.0); Monocytes % (A) 8 %; Neutrophils # (A) 3.7 k/uL (1.3-7.7); Neutrophils % (A) 64 %; Platelet Count 270 k/uL (150-450); RBC 4.08 m/uL (4.30-5.90); RDW 13.7 % (11.5-15.5); WBC 5.8 k/uL (3.8-10.6)
[2020-03-05 13:20] LABS: ALT 12 U/L (4-49); AST 19 U/L (17-59); African American GFR (CKD) >90 (>60 ml/min/1.73 sqM); Albumin 3.6 g/dL (3.5-5.0); Alkaline Phosphatase 90 U/L (38-126); Anion Gap 8 mmol/L; Blood Urea Nitrogen 11 mg/dL (9-20); Calcium 8.8 mg/dL (8.4-10.2); Carbon Dioxide 22 mmol/L (22-30); Chloride 102 mmol/L (98-107); Glucose 96 mg/dL (74-99); Non-African American GFR(CKD) >90 (>60 ml/min/1.73 sqM); Potassium 4.1 mmol/L (3.5-5.1); Sodium 132 mmol/L (137-145); Total Bilirubin 0.6 mg/dL (0.2-1.3); Total Protein 6.7 g/dL (6.3-8.2)
[2020-03-05 13:22] LABS: INR 0.9 (<1.2); Partial Thromboplastin Time 24.9 sec (22.0-30.0); Prothrombin Time 9.8 sec (9.0-12.0)
[2020-03-05 14:57] LABS: Appearance,Urine Clear (Clear); Bacteria,Urine Rare /hpf; Bilirubin,Urine Negative (Negative); Blood,Urine Negative (Negative); Color,Urine Light Yellow; Glucose,Urine (UA) Negative (Negative); Ketones,Urine Negative (Negative); Leukocyte Esterase,Urine Small (Negative); Mucus,Urine Rare /hpf; Nitrite,Urine Negative (Negative); Protein,Urine Negative (Negative); RBC,Urine 1 /hpf (0-5); Specific Gravity,Urine 1.006 (1.001-1.035); Urobilinogen,Urine <2.0 mg/dL (<2.0); WBC,Urine 5 /hpf (0-5)
[2020-03-05 15:25] VITALS: TEMP 97.6
[2020-03-05 16:05] VITALS: BP 107/78; PULSE 64; RESP 14
== END 2020-03-05 16:06 | disposition home or self-care (01) ==
LOC: EC 12:09
DX: I95.9 Hypotension, unspecified (principal); G82.50 Quadriplegia, unspecified; R00.1 Bradycardia, unspecified; Z79.899 Other long term (current) drug therapy
CPT/HCPCS: 36415; 80053; 81001; 83605; 83735; 84484; 85025; 85610; 85730; 93005; 96360; 99285

== ENCOUNTER → 2020-06-21 | Outpatient (CLI) | payer MEDICARE ==
--- NOTE | 2020-06-21 16:10 | MR ---
MRI CERVICAL SPINE: CLINICAL HISTORY: Cervicalgia, spondylosis, disc degeneration C4-C5 through C6-C7 levels, spinal sten osis, and spondylolisthesis all per Order. Headache with neck pain for 1.5 years causing pain and wea kness into both arms per patient. TECHNIQUE: Multiplanar, multisequence imaging of the cervical spine is performed without and with IV contrast, 7 cc of gadolinium was given intravenously. COMPARISON: MRI cervical spine February 22, 2019.. FINDINGS: Sagittal images of the cervical spine show the craniocervical junction to remain within nor mal limits. Persistent low T1 and increased T2 signal posterior aspect of the cervical spinal cord, m ost prominent in the radius from the C2-C3 disc space through the inferior C4 level. There is additio nal increased T2 signal up to the foramen magnum extending to the C7-T1 disc space level. Cervical sp inal cord shows diminished AP diameter and for visualization below roughly superior C5 level similar to prior studies. Alignment remains stable and straightened. Persistent grade 1 retrolisthesis C6 on C7. The vertebral body heights remain normal. Persistent moderate disc space narrowing C4-C5 and C6- C7 levels. Persistent Modic type I endplate changes C6-C7 level. Postcontrast images show no suspicio us enhancement, there is better visualization of diminished caliber to the cervical spinal cord most prominent near C6 level. Large hemangioma noted involving the T1 vertebra. Axial images at C2-C3 level redemonstrates central posterior syrinx otherwise unremarkable. Axial images at C3-C4 level shows broad-based right paracentral disc protrusion mildly effacing anter ior thecal sac with uncovertebral and facet degenerative changes causing mild bilateral neural forami nal narrowing. The expanded cord with syrinx redemonstrated. No significant change from prior. Axial images at the C4-C5 level shows slightly expanded cord and prominent syrinx with left paracentr al spur disc complex effacing anterolateral thecal sac and uncovertebral facet degenerative changes c ausing mild bilateral neural foraminal narrowing. No significant change from prior. Axial images at the C5-C6 level shows broad-based posterior disc protrusion effacing anterior thecal sac up to ventral surface of spinal cord which is flattened, abnormal signal is present, moderate to severe bilateral neural foraminal narrowing redemonstrated. No significant change from prior. Axial images at C6-C7 level shows spondylosis with broad-based posterior disc protrusion effacing the anterior thecal sac of the ventral surface of the spinal cord which is flattened with abnormal signa l. There is advanced bilateral neural foraminal narrowing seen. No significant change from prior. Axial images at C7-T1 level shows some stable abnormal cord signal otherwise are unremarkable. IMPRESSION: Overall stable findings from last 2 studies. Abnormal cord signal throughout the cervical spinal cord. Areas of expansion and atrophy noted. Straightening of cervical spine with C6-C7 spondy lolisthesis, multilevel degenerative changes greatest C4-C5 through C6-C7 levels redemonstrated. Furt her details as discussed above.
== END | disposition home or self-care (01) ==
LOC: RADMRIMAIN 13:46
PROVIDERS: ATTEND Physical Medicine & Rehabilitation
DX: M48.02 Spinal stenosis, cervical region (principal); M50.21 Other cervical disc displacement, high cervical region; M43.12 Spondylolisthesis, cervical region; M47.812 Spondylosis without myelopathy or radiculopathy, cervical region; G95.0 Syringomyelia and syringobulbia; R90.89 Other abnormal findings on diagnostic imaging of central nervous system
CPT/HCPCS: 72156; A9585

== ENCOUNTER → 2021-07-01 | Outpatient (CLI) | payer MEDICARE ==
[2021-07-01 14:00] VITALS: BP 85/50; PULSE 59; RESP 18; TEMP 96.6
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
== END ==
LOC: PNWHC3 13:08
DX: M47.12 Other spondylosis with myelopathy, cervical region (principal); G82.50 Quadriplegia, unspecified; M79.18 Myalgia, other site
CPT/HCPCS: 99211

== ENCOUNTER 2021-08-07 09:45 | Day surgery (SDC) | payer MEDICARE ==
[2021-08-05 13:20] VITALS: BMI 24.3
[~2021-08-07 09:45] MED LIST changes: -DEXAMETHASONE SOD PHOSPHATE 10 MG/ML 1 ML VIAL IV ONE; -HYDROmorphone 1 MG/ML 1 ML SYRINGE IVP PRN; -LIDOCAINE 1% 20 ML VIAL (10MG/ML) FOR IV START INTRADERMA PRN; -ONDANSETRON 4 MG/2 ML VIAL IVP ONE; -Pre Op ABX Message 1 EACH MISC MISCELLANE ONE
[2021-08-07 10:15] VITALS: RESP 16; TEMP 97.5
[2021-08-07] MEDS ORDERED: DEXAMETHASONE SOD PHOSPHATE 10 MG/ML 1 ML VIAL ONE (10:17)
[2021-08-07] MEDS ORDERED: fentaNYL (PF) 50 MCG/ML 2 ML AMP ONE (10:17)
[2021-08-07] MEDS ORDERED: MIDAZOLAM 2 MG/2 ML VIAL ONE (10:17)
[2021-08-07] MEDS ORDERED: ROPIVACAINE 5MG/ML 20ML VIAL ONE (10:17)
[2021-08-07] MEDS ORDERED: IV FLUID CONTINUATION 700 ML IV ONE (10:47)
[2021-08-07 11:06] VITALS: BP 140/93; PULSE 74
--- NOTE | 2021-08-07 11:20 | P.PCN ---
Date of Procedure: 08/07/21 Description of Procedure: PROCEDURE: Bilateral C4, C5, and C6 medial branch block under fluoroscopic guidance. PREOPERATIVE DIAGNOSIS: Cervical spondylosis without myelopathy. POSTOPERATIVE DIAGNOSIS: Cervical spondylosis without myelopathy. ANESTHESIA: Local with 1% lidocaine; IV sedation : Versed, and fentanyl EBL: none COMPLICATIONS: none Fluoroscopic image: Saved to electronic medical records PROCEDURE INDICATION: The patient with neck pain presents to our pain clinic for diagnostic cervical spine medial branch block. PROCEDURE DESCRIPTION: The patient was seen and identified in the preoperative area. After discussing the risks, benefits, possible. complications, and al ternatives with the patient, the patient signed informed consent. Peripheral IV line was placed. Vital sings were taken and stable throughout the procedure. The patient was placed in the left lateral position on the procedure table. Critical pause was taken. Cervical area was prepped with ChloraPrep x2 ( 1 on each side) and draped in the usual sterile fashion. Using lateral fluoroscopy, the centroid of the right trapezoid of C4, C5, and C6 were identified, and skin overlying the target areas was localized with 0.5 ml-1% lidocaine using 27-gauge 1.5-inch needle. We used 3.5-inch 25-gauge spinal needles for the procedure. [place] were guided by fluoroscopy to the centroid of the trapezoid of C4, C5, and C6. After negative aspiration for CSF, blood, air, and other bodily contents and with no paresthesias, 0.5 mL of block solution injected at each level. The block solution containing 4 mL of 0.5% preservative-free ropivacaine, and 10 mg of dexamethasone. Needle was removed intact. Entire procedure repeated on the cervical left side. [place] removed intact Skin was cleaned and Band-Aid applied..The patient tolerated the procedure well. Disposition : The patient tolerated the procedure very well. The patient was transferred to the recovery room and remained stable until discharged home. The patient was given detailed discharge instructions for bleeding, infection, inc reased pain at the injection site, and was advised to seek immediate medical attention should significant side effects develop. The patient will be followed up with our Pain Clinic within 4 weeks for follow-up visit.
--- NOTE | 2021-08-07 16:03 | FL ---
Fluoroscopy INDICATION: Pain FINDINGS: Fluoroscopy time: 12 seconds. Images obtained: 5. IMPRESSIONS: 1. Documentation of fluoroscopy.
== END 2021-08-07 11:20 | disposition home or self-care (01) ==
LOC: ORPAIN 09:45
DX: M47.812 Spondylosis without myelopathy or radiculopathy, cervical region (principal); Z79.891 Long term (current) use of opiate analgesic; Z79.899 Other long term (current) drug therapy; Z98.890 Other specified postprocedural states; G82.50 Quadriplegia, unspecified
CPT/HCPCS: 64490; 64491; J2250; J1100; J3010; J2795

== ENCOUNTER → 2024-03-14 | Outpatient (CLI) | payer MEDICARE ==
--- NOTE | 2024-03-14 12:48 | CT ---
EXAMINATION TYPE: CT abdomen pelvis wo con DATE OF EXAM: 03/14/2024 HISTORY: hx kidney stones. CT DLP: 722 mGycm. Automated Exposure Control for Dose Reduction was Utilized. TECHNIQUE: CT scan of the abdomen and pelvis is performed without oral or IV contrast. COMPARISON: Most recent prior CT 2018 FINDINGS: Within the limitations of a non-contrast study, the following observations are made. LUNG BASES: Mild bibasilar linear scarring is redemonstrated. Small inferior pericardial effusion aga in seen LIVER/GB: Stable 1.4 cm low dense lesion in the periphery of the right hepatic lobe axial image 30 fa voring benign thin-walled cyst. PANCREAS: No significant abnormality is seen. SPLEEN: Punctate calcification redemonstrated axial image 26. ADRENALS: No significant abnormality is seen. KIDNEYS: There is stable 4 mm nonobstructing calculus lower pole of the right kidney axial image 62. There is stable 1.3 cm thin-walled cyst in the left kidney laterally axial image 43. Additional subce ntimeter low dense lesion left kidney is stable axial image 47. No hydronephrosis seen bilaterally. F oley catheter decompresses bladder. BOWEL: Moderate diffuse colonic fecal prominence. No abnormal small or large bowel dilatation. Persis tent mild focal fluid along the proximal left colon similar to prior study axial image 60. GENITAL ORGANS: Prostate gland upper limits of normal in size. LYMPH NODES: No greater than 1cm abdominal or pelvic lymph nodes are appreciated. OSSEOUS STRUCTURES: Surgical change to left hip is new from prior study. Moderate to severe narrowing of both hip joints is again seen. Multilevel spurring in the thoracolumbar spine redemonstrated. OTHER: No significant additional abnormality is seen. IMPRESSION: 1. Stable 4 to 5 mm nonobstructing right renal calculus. No hydronephrosis or obstructing ureteral ca lculi seen bilaterally. 2. Moderate diffuse colonic fecal stasis or constipation. No bowel obstruction.
== END | disposition home or self-care (01) ==
LOC: RADCTMAIN 11:59
PROVIDERS: ATTEND Urology
DX: N20.0 Calculus of kidney (principal); N39.0 Urinary tract infection, site not specified
CPT/HCPCS: 74176

== ENCOUNTER 2024-08-30 16:26 | Inpatient (IN) | payer MEDICARE ==
--- NOTE | 2024-08-30 17:30 | ED ---
General Adult HPI - General Chief complaint: Weakness Stated complaint: light headed, weakness, diarrhea Time Seen by Provider: 08/30/24 16:48 Source: patient, RN notes reviewed, old records reviewed Mode of arrival: wheelchair Limitations: no limitations - History of Present Illness Initial comments: Patient is a 68-year-old male who presents emergency department complaining of generalized weakness. Has been dealing with diarrhea, while being treated for UTI with Bactrim. Has a past medical history remarkable for quadriplegia and has a chronic indwelling Sinclair catheter. Is currently being treated for UTI with Bactrim. Last had Sinclair swapped out 2 weeks ago. He denies any abdominal pain, chest pain, shortness of breath. Denies any nausea or vomiting. States he is also noticing watery stools without any blood. States when he eats, it seems to go "straight through [place]." Has no other acute complaints at this time. Presents for further evaluation at this time. - Related Data Home Medications Medication Instructions Recorded Confirmed Sulfamethox-Tmp 800-160Mg [Bactrim 1 tab PO BID 08/30/24 08/30/24 DS 800-160 mg] Allergies Allergy/AdvReac Type Severity Reaction Status Date / Time No Known Allergies Allergy Verified 08/30/24 19:56 Review of Systems ROS Statement: Those systems with pertinent positive or pertinent negative responses have been documented in the HPI. Review of Systems: CONST: Denies fever EYES: Denies blurry vision ENT: Denies nasal congestion C/V: Denies Chest pain RESP: Denies shortness of breath GI: Denies abdominal pain : Denies dysuria SKIN: Denies rash. MSK: Denies joint pain. NEURO: Denies headache ROS Other: All systems not noted in ROS Statement are negative. Past Medical History Past Medical History: Neurologic Disorder Additional Past Medical History / Comment(s): BLADDER STONE -FREQUENT UTI'S. QUADRIPLEGIC - FRACTURE OF C6 AND C7. History of Any Multi-Drug Resistant Organisms: Other MDRO Past Surgical History: Hernia Repair Additional Past Surgical History / Comment(s): LITHROTRIPSY, stone in bladder removed. Past Anesthesia/Blood Transfusion Reactions: No Reported Reaction Past Psychological History: No Psychological Hx Reported Smoking Status: Never smoker Past Alcohol Use History: None Reported Past Drug Use History: Marijuana - Past Family History Mother Family Medical History: No Reported History Additional Family Medical History / Comment(s): . General Exam - General Exam Comments Initial Comments: General: Appears in no acute distress. HEAD: Normal with no signs of head trauma. EYES: EOMI ENT: Hearing grossly intact, normal oropharynx. Mildly dry mucous membranes. RESPIRATORY: Clear breath sounds bilaterally. No wheezes, rales, or rhonchi. C/V: Regular rate and rhythm. S1 and S2 auscultated, no edema, peripheral pulses 2+ and intact throughout ABD: Abd is soft, nontender, nondistended EXT: Normal range of motion, no obvious deformity SKIN: No rashes or lesions observed on exposed skin. NEURO: Alert and oriented x 4. Limitations: no limitations Course Vital Signs 08/30/24 08/30/24 08/30/24 16:32 18:00 19:30 Temperature 97.8 F 97.7 F Pulse Rate 71 76 76 Respiratory 20 18 18 Rate Blood Pressure 131/90 141/102 O2 Sat by Pulse 100 98 Oximetry Medical Decision Making - Medical Decision Making Was pt. sent in by a medical professional or institution (, PA, AMERICAN SIGN LANGUAGE INTERPRETER, urgent care, hospital, or custodial...) When possible be specific @ -No Did you speak to anyone other than the patient for history (EMS, parent, family, police, friend...)? What history was obtained from this source @ -No Did you review nursing and triage notes (agree or disagree)? Why? @ -I reviewed and agree with nursing and triage notes Were old charts reviewed (outside hosp., previous admission, EMS record, old EKG, old radiological studies, urgent care reports/EKG's, custodial records)? Report findings @ -No old charts were reviewed Differential Diagnosis (chest pain, altered mental status, abdominal pain women, abdominal pain men, vaginal bleeding, weakness, fever, dyspnea, syncope, headache, dizziness, GI bleed, back pain, seizure, CVA, palpatations, mental health, musculoskeletal)? @ -Differential Weakness: Hypoglycemia, shock, sepsis, hyponatremia, anemia, infection, IN, ETOH, adverse medicine reaction, overdose, stroke, this is not meant to be an all-inclusive l ist. EKG interpreted by me (3pts min.). @ -As above X-rays interpreted by me (1pt min.). @ -Chest x-ray reveals no obvious acute cardiopulmonary process. CT interpreted by me (1pt min.). @ -CT imaging revealed findings concerning for inflammatory infectious changes in the rectosigmoid colon. Also constipation. No other obvious acute process to explain the patient's current symptoms. U/S interpreted by me (1pt. min.). @ -None done What testing was considered but not performed or refused? (CT, X-rays, U/S, labs)? Why? @ -None What meds were considered but not given or refused? Why? @ -None Did you discuss the management of the patient with other professionals (professionals i.e. , PA, AMERICAN SIGN LANGUAGE INTERPRETER, lab, RT, psych nurse, social media director, director treasurer, teacher, corporate responsibility officer, case technician)? Give summary @ -Discussed with Dr. Mendoza of ICU who agreed patient can probably go to stepdown for now and they will upgrade is needed. They will continue to follow along with the patient. Recommended an additional IV fluid bolus at this time as well as start the patient on 100 cc IV fluids hourly. We both agree that the hyponatremia is likely from hypovolemia. Discussed the case with the admitting provider, Dr. Baca who accepted the admission. Was smoking cessation discussed for >3mins.? @ -No Was critical care preformed (if so, how long)? @ -yes, 40 minutes Were there social determinants of health that impacted care today? How? (Homelessness, low income, unemployed, alcoholism, drug addiction, transportation, low edu. Level, literacy, decrease access to med. care, senior living, rehab)? @ -No Was there de-escalation of care discussed even if they declined (Discuss DNR or withdrawal of care, Hospice)? DNR status @ -No What co-morbidities impacted this encounter? (DM, HTN, Smoking, COPD, CAD, Cancer, CVA, ARF, Chemo, Hep., AIDS, mental health diagnosis, sleep apnea, morbid obesity)? @ -Quadriplegia, chronic indwelling Sinclair catheter Was patient admitted / discharged? Hospital course, mention meds given and route, prescriptions, significant lab abnormalities, going to OR and other pertinent info. @ -Based on the patient's presentation and physical exam, presents with diarrhea, current treatment for UTI, as well as generalized weakness. Vital signs within acceptable limits. Patient will be symptomatically treat with IV Zofran, IV fluids. We will obtain generalized workup. Patient was in agreement this plan. Patient's laboratory studies remarkable for hyponatremia of 114 and hypochloremia of 98. Likely hypovolemic in nature. Patient is mildly hypomagnesemic as well. 3+ ketones in the urine. Findings concerning for possible UTI. Sinclair catheter will be swapped. Will continue with IV Rocephin at this time. We will obtain CT imaging as well as a chest x-ray. Patient was in agreement this plan. CT imaging showed inflammatory infectious changes of the rectosigmoid colon otherwise no other obvious acute process. Chest x-ray unremarkable. At this time, patient will be admitted to the hospital. Discussed with Dr. Mendoza of ICU who agreed patient can probably go to stepdown for now and they will upgrade is needed. They will continue to follow along with the patient. Recommended an additional IV fluid bolus at this time as well as start the patient on 100 cc IV fluids hourly. We both agree that the hyponatremia is likely from hypovolemia.Repeat sodium ordered for 4 hours from now at 11 PM. Discussed the case with the admitting provider, Dr. Baca who accepted the admission. Undiagnosed new problem with uncertain prognosis? @ -No Drug Therapy requiring intensive monitoring for toxicity (Heparin, Nitro, Insulin, Cardizem)? @ -No Were any procedures done? @ -No Diagnosis/symptom? @ -Hyponatremia, hypochloremia, hypovolemia from diarrhea. UTI. Acute, or Chronic, or Acute on Chronic? @ -Acute Uncomplicated (without systemic symptoms) or Complicated (systemic symptoms)? @ -Complicated Side effects of treatment? @ -None Exacerbation, Progression, or Severe Exacerbation] @ -No Poses a threat to life or bodily function? @ -Yes - Lab Data Result diagrams: 08/30/24 17:29 08/30/24 17:29 Lab Results 08/30/24 08/30/24 08/30/24 Range/Units 17:29 17: 17:29 WBC 6.1 (3.8-10.6) k/uL RBC 3.76 L (4.30-5.90) m/uL Hgb 11.1 L (13.0-17.5) gm/dL Hct 32.3 L (39.0-53.0) % MCV 85.8 (80.0-100.0) fL MCH 29.6 (25.0-35.0) pg MCHC 34.5 (31.0-37.0) g/dL RDW 12.9 (11.5-15.5) % Plt Count 255 (150-450) k/uL MPV 6.5 Neutrophils % 80 % Lymphocytes % 6 % Monocytes % 10 % Eosinophils % 1 % Basophils % 0 % Neutrophils # 4.9 (1.3-7.7) k/uL Lymphocytes # 0.4 L (1.0-4.8) k/uL Monocytes # 0.6 (0-1.0) k/uL Eosinophils # 0.0 (0-0.7) k/uL Basophils # 0.0 (0-0.2) k/uL PT 11.9 (10.0-12.5) sec INR 1.1 (<1.2) APTT 28.3 (22.0-30.0) sec Sodium (137-145) mmol/L Potassium (3.5-5.1) mmol/L Chloride (98-107) mmol/L Carbon Dioxide (22-30) mmol/L Anion Gap mmol/L BUN (9-20) mg/dL Creatinine (0.66-1.25) mg/dL Est GFR (CKD-EPI)AfAm (>60 ml/min/1.73 sqM) Est GFR (CKD-EPI)NonAf (>60 ml/min/1.73 sqM) Glucose (74-99) mg/dL Plasma Lactic Acid Ken[place] (0.7-2.0) mmol/L Calcium (8.4-10.2) mg/dL Magnesium (1.6-2.3) mg/dL Total Bilirubin (0.2-1.3) mg/dL AST (17-59) U/L ALT (4-49) U/L Alkaline Phosphatase (38-126) U/L Total Protein (6.3-8.2) g/dL Albumin (3.5-5.0) g/dL Urine Color Colorless Urine Appearance Clear (Clear) Urine pH 6.0 (5.0-8.0) Ur Specific [place] 1.008 (1.001-1.035) Urine Protein Negative (Negative) Urine Glucose (UA) Negative (Negative) Urine Ketones 3+ H (Negative) Urine Blood Negative (Negative) Urine Nitrite Negative (Negative) Urine Bilirubin Negative (Negative) Urine Urobilinogen <2.0 (<2.0) mg/dL Ur Leukocyte Esterase Moderate H (Negative) Urine RBC 2 (0-5) /hpf Urine WBC 11 H (0-5) /hpf Urine Bacteria Many H (None) /hpf Urine Mucus Rare H (None) /hpf Influenza Type A (PCR) (Not Detectd) Influenza Type B (PCR) (Not Detectd) RSV (PCR) (Not Detectd) SARS-CoV-2 (PCR) (Not Detectd) 08/30/24 08/30/24 08/30/24 Range/Units 17:29 17:29 17:29 WBC (3.8-10.6) k/uL RBC (4.30-5.90) m/uL Hgb (13.0-17.5) gm/dL Hct (39.0-53.0) % MCV (80.0-100.0) fL MCH (25.0-35.0) pg MCHC (31.0-37.0) g/dL RDW (11.5-15.5) % Plt Count (150-450) k/uL MPV Neutrophils % % Lymphocytes % % Monocytes % % Eosinophils % % Basophils % % Neutrophils # (1.3-7.7) k/uL Lymphocytes # (1.0-4.8) k/uL Monocytes # (0-1.0) k/uL Eosinophils # (0-0.7) k/uL Basophils # (0-0.2) k/uL PT (10.0-12.5) sec INR (<1.2) APTT (22.0-30.0) sec Sodium 114 L* (137-145) mmol/L Potassium 4.3 (3.5-5.1) mmol/L Chloride 90 L (98-107) mmol/L Carbon Dioxide 16 L (22-30) mmol/L Anion Gap 8 mmol/L BUN 5 L (9-20) mg/dL Creatinine 0.41 L (0.66-1.25) mg/dL Est GFR (CKD-EPI)AfAm >90 (>60 ml/min/1.73 sqM) Est GFR (CKD-EPI)NonAf >90 (>60 ml/min/1.73 sqM) Glucose 73 L (74-99) mg/dL Plasma Lactic Acid Kenrick 0.7 (0.7-2.0) mmol/L Calcium 7.8 L (8.4-10.2) mg/dL Magnesium 1.5 L (1.6-2.3) mg/dL Total Bilirubin 1.2 (0.2-1.3) mg/dL AST 20 (17-59) U/L ALT 11 (4-49) U/L Alkaline Phosphatase 128 H (38-126) U/L Total Protein 5.9 L (6.3-8.2) g/dL Albumin 3.1 L (3.5-5.0) g/dL Urine Color Urine Appearance (Clear) Urine pH (5.0-8.0) Ur Specific [place] (1.001-1.035) Urine Protein (Negative) Urine Glucose (UA) (Negative) Urine Ketones (Negative) Urine Blood (Negative) Urine Nitrite (Negative) Urine Bilirubin (Negative) Urine Urobilinogen (<2.0) mg/dL Ur Leukocyte Esterase (Negative) Urine RBC (0-5) /hpf Urine WBC (0-5) /hpf Urine Bacteria (None) /hpf Urine Mucus (None) /hpf Influenza Type A (PCR) Not Detected (Not Detectd) Influenza Type B (PCR) Not Detected (Not Detectd) RSV (PCR) Not Detected (Not Detectd) SARS-CoV-2 (PCR) Not Detected (Not Detectd) - EKG Data -: EKG Interpreted by Me EKG Comments: 12-lead Electrocardiogram Interpretation Note EKG was reviewed and interpreted by myself. 12-lead ECG performed at 1741 is interpreted by me as revealing normal sinus rhythm at a rate of 67 beats per minute. [place] is normal. VA interval is 193 ms, QRS duration is 92 ms, QTc is 395 ms.. There were no ST or T wave abnormalities to suggest myocardial ischemia or injury. R wave progression across the precordium was satisfactory. By my interpretation this EKG is non-diagnostic for acute ischemia. Compared with EKG from March 2020 with no obvious dynamic changes today. Critical Care Time Critical Care Time: Yes Total Critical Care Time: 40 Disposition Clinical Impression: Hypovolemia, Hyponatremia, Hypomagnesemia, Colitis Disposition: ADMITTED IP TO THIS HOSP Condition: Serious Referrals: Bravo Aj MD [Primary Care Provider] - 1-2 days Time of Disposition: 21:00
[2024-08-30] MEDS: SODIUM CHLORIDE 0.9% 1,000 ML IV STA ×3 (17:40→19:22)
[2024-08-30] MEDS: ONDANSETRON 4 MG/2 ML VIAL IVP STA (17:41)
[2024-08-30 17:44] LABS: Basophils % (A) 0 %; Eosinophils % (A) 1 %; HCT 32.3 % (39.0-53.0); HGB 11.1 gm/dL (13.0-17.5); Lymphocytes # (A) 0.4 k/uL (1.0-4.8); Lymphocytes % (A) 6 %; MCH 29.6 pg (25.0-35.0); MCHC 34.5 g/dL (31.0-37.0); MCV 85.8 fL (80.0-100.0); Mean Platelet Volume 6.5; Monocytes # (A) 0.6 k/uL (0-1.0); Monocytes % (A) 10 %; Neutrophils # (A) 4.9 k/uL (1.3-7.7); Neutrophils % (A) 80 %; Platelet Count 255 k/uL (150-450); RBC 3.76 m/uL (4.30-5.90); RDW 12.9 % (11.5-15.5); WBC 6.1 k/uL (3.8-10.6)
[2024-08-30 17:52] LABS: INR 1.1 (<1.2); Partial Thromboplastin Time 28.3 sec (22.0-30.0); Prothrombin Time 11.9 sec (10.0-12.5)
[2024-08-30 17:53] LABS: ALT 11 U/L (4-49); AST 20 U/L (17-59); African American GFR (CKD) >90 (>60 ml/min/1.73 sqM); Albumin 3.1 g/dL (3.5-5.0); Alkaline Phosphatase 128 U/L (38-126); Anion Gap 8 mmol/L; Blood Urea Nitrogen 5 mg/dL (9-20); Calcium 7.8 mg/dL (8.4-10.2); Carbon Dioxide 16 mmol/L (22-30); Chloride 90 mmol/L (98-107); Glucose 73 mg/dL (74-99); Magnesium 1.5 mg/dL (1.6-2.3); Non-African American GFR(CKD) >90 (>60 ml/min/1.73 sqM); Potassium 4.3 mmol/L (3.5-5.1); Total Bilirubin 1.2 mg/dL (0.2-1.3); Total Protein 5.9 g/dL (6.3-8.2)
[2024-08-30 17:56] LABS: Sodium 114 mmol/L (137-145)
[2024-08-30 18:12] LABS: Appearance,Urine Clear (Clear); Bacteria,Urine Many /hpf; Bilirubin,Urine Negative (Negative); Blood,Urine Negative (Negative); Color,Urine Colorless; Glucose,Urine (UA) Negative (Negative); Ketones,Urine 3+ (Negative); Leukocyte Esterase,Urine Moderate (Negative); Mucus,Urine Rare /hpf; Nitrite,Urine Negative (Negative); Protein,Urine Negative (Negative); RBC,Urine 2 /hpf (0-5); Specific Gravity,Urine 1.008 (1.001-1.035); Urobilinogen,Urine <2.0 mg/dL (<2.0); WBC,Urine 11 /hpf (0-5)
--- NOTE | 2024-08-30 19:06 | XR ---
EXAMINATION TYPE: XR chest 2V DATE OF EXAM: 08/30/2024 7:01 PM COMPARISON: Previous chest radiograph 05/31/2019. CLINICAL INDICATION: Male, 68 years old with history of Weakness; [facility] TECHNIQUE: XR chest 2V Frontal and lateral views of the chest. FINDINGS: Cardiomegaly. Lungs identified bilaterally with coarsening of the interstitial markings. No sizable pleural effusio n. No pneumothorax. No acute osseous abnormality. Multilevel thoracic degenerative changes and chronic wedging. IMPRESSION: No acute abnormality in the chest. [facility], , 08/30/2024 7:04 PM
[2024-08-30] MEDS: MAGNESIUM SULFATE-D5W PMX 1 GM in DEXTROSE/WATER 1 100ML.BAG IVPB ONE (19:22)
--- NOTE | 2024-08-30 20:33 | CT ---
EXAMINATION TYPE: CT abdomen pelvis w con DATE OF EXAM: 08/30/2024 7:33 PM COMPARISON: Previous CT abdomen/pelvis 03/14/2024. CLINICAL INDICATION: Male, 68 years old with history of diarrhea; pt c/o fever chills dx with uti on antibiotics. c/o diiness weakness TECHNIQUE: Axial CT abdomen pelvis w con;Sagittal and coronal reformats were created on a separate w orkstation. Contrast used:100ml mL of Isovue 300 with IV Contrast, Oral contrast used: with Oral Contrast CT DLP: 568.1 mGycm, Automated exposure control for dose reduction was used. FINDINGS: Partially visualized mild irregularity and suggestion of pericardial effusion. LOWER CHEST: Unremarkable ABDOMEN Liver unremarkable. Gallbladder unremarkable. Spleen normal in size and morphology. No suspicious tea ring of the nodule. Pancreas unremarkable. No abnormal biliary ductal dilatation. Kidneys enhance sym metrical bilaterally. Simple cyst in the left kidney. No calculi in the inferior right kidney. Multip le right renal parenchymal scarring defects. The abdominal aorta without aneurysmal dilatation. No pa thologically enlarged retroperitoneal or mesenteric lymphadenopathy. Marked wall thickening of the rectosigmoid colon. There is nonspecific free fluid in the left lower q uadrant. Moderate diffuse colonic stool burden. No evidence of bowel obstruction. No significant free air/pneumoperitoneum. Osseous structures demineralized. Intramedullary connie and gamma nail fixation in the proximal left fem ur. Thoracolumbar spine degenerative changes anterior osteophyte formation. Mild segmental wall thickenin g of the urinary bladder with intraluminal Sinclair catheter noted. Layering bladder calculus. IMPRESSION: 1. Marked wall thickening of the rectosigmoid colon which could reflect infectious or inflammatory p roctocolitis. However, malignancy can have a similar appearance and direct visualization/colonoscopy is recommended when clinically feasible. 2. Small volume free fluid in the left lower quadrant. 3. Moderate colonic stool burden suggesting constipation. 4. Nonobstructing calculus in the right kidney. Layering calculus in the dependent portion of the ur inary bladder. [facility], , 08/30/2024 8:31 PM
[2024-08-30] MEDS ORDERED: VANCOMYCIN IV PER PHARMACY 1 EACH MISC MISCELLANE PRN (20:44)
[2024-08-30] MEDS ORDERED: ONDANSETRON 4 MG/2 ML VIAL IVP PRN (20:45)
[2024-08-30] MEDS ORDERED: NALOXONE 0.4 MG/ML 1 ML VIAL IV PRN (20:45)
[2024-08-30] MEDS: VANCOMYCIN 1,250 MG in SODIUM CHLORIDE 0.9% 250 ML IVPB ONE (21:32)
[2024-08-30 23:06] LABS: African American GFR (CKD) >90 (>60 ml/min/1.73 sqM); Anion Gap 9 mmol/L; Blood Urea Nitrogen 3 mg/dL (9-20); Calcium 7.9 mg/dL (8.4-10.2); Carbon Dioxide 16 mmol/L (22-30); Chloride 99 mmol/L (98-107); Glucose 69 mg/dL (74-99); Non-African American GFR(CKD) >90 (>60 ml/min/1.73 sqM); Potassium 4.3 mmol/L (3.5-5.1); Sodium 124 mmol/L (137-145)
[2024-08-30 23:56] LABS: African American GFR (CKD) >90 (>60 ml/min/1.73 sqM); Anion Gap 10 mmol/L; Blood Urea Nitrogen 4 mg/dL (9-20); Calcium 7.8 mg/dL (8.4-10.2); Carbon Dioxide 14 mmol/L (22-30); Chloride 99 mmol/L (98-107); Glucose 64 mg/dL (74-99); Non-African American GFR(CKD) >90 (>60 ml/min/1.73 sqM); Potassium 4.2 mmol/L (3.5-5.1); Sodium 123 mmol/L (137-145)
[2024-08-31] MEDS ORDERED: DEXTROSE 50% SYRINGE 50 ML IVP PRN ×2 (02:59)
[2024-08-31 03:19] LABS: Glucose,Whole Blood 114 mg/dL (70-110)
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
[2024-08-31 05:26] LABS: HCT 32.3 % (39.0-53.0); HGB 11.2 gm/dL (13.0-17.5); MCH 30.1 pg (25.0-35.0); MCHC 34.7 g/dL (31.0-37.0); MCV 86.9 fL (80.0-100.0); Mean Platelet Volume 6.4; Platelet Count 277 k/uL (150-450); RBC 3.72 m/uL (4.30-5.90); RDW 13.1 % (11.5-15.5); WBC 3.8 k/uL (3.8-10.6)
[2024-08-31 05:36] LABS: African American GFR (CKD) >90 (>60 ml/min/1.73 sqM); Anion Gap 9 mmol/L; Blood Urea Nitrogen 3 mg/dL (9-20); Carbon Dioxide 16 mmol/L (22-30); Chloride 101 mmol/L (98-107); Glucose 87 mg/dL (74-99); Non-African American GFR(CKD) >90 (>60 ml/min/1.73 sqM); Potassium 4.1 mmol/L (3.5-5.1); Sodium 126 mmol/L (137-145)
[2024-08-31] MEDS: VANCOMYCIN 1,250 MG in SODIUM CHLORIDE 0.9% 250 ML IVPB SCH (05:49)
[2024-08-31] MEDS: MELATONIN 3 MG TABLET PO SCH (05:51)
[2024-08-31 06:04] LABS: Albumin 2.7 g/dL (3.5-5.0); Total Bilirubin 0.8 mg/dL (0.2-1.3); Total Protein 5.4 g/dL (6.3-8.2)
[2024-08-31 08:23] LABS: Eosinophils # (M) 0.04 k/uL (0-0.7); Lymphocytes # (M) 0.27 k/uL (1.0-4.8); Monocytes # (M) 0.53 k/uL (0-1.0); Neutrophils # (M) 2.96 k/uL (1.3-7.7); Neutrophils % (M) 78 %; Nucleated Red Blood Cells 0 /100 WBC (0-0); Total Cells Counted 100
[2024-08-31 08:25] LABS: Anisocytosis (M) Present
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
[2024-08-31] MEDS: FAMOTIDINE 20 MG/2 ML VIAL IV SCH (09:04)
--- NOTE | 2024-08-31 09:49 | US ---
EXAMINATION TYPE: US venous doppler duplex LE BI DATE OF EXAM: 08/31/2024 3:18 AM COMPARISON: NONE CLINICAL INDICATION: Male, 68 years old with history of rule out DVT; Left lower extremity swelling; patient is a quadriplegic TECHNIQUE: The lower extremity deep venous system is examined utilizing real time linear array sonog adithya with graded compression, color doppler sonography, and spectral doppler. SIDE PERFORMED: FINDINGS: VESSELS IMAGED: Common Femoral Vein Deep Femoral Vein Greater Saphenous Vein * Femoral Vein Popliteal Vein Small Saphenous Vein * Proximal Calf Veins (* superficial vessels) Television Specialist notes: Technically difficult exam due to patient's condition and paralysis. Right Leg: Negative for DVT, Color Doppler imaging shows patency of the vessels. Spectral waveforms are within normal limits. Left Leg: Positive for DVT at the junction of the CFV/upper femoral vein. Some subcutaneous edema no issa on the left. IMPRESSION: 1. Exam positive for DVT left lower extremity at the junction of the CFV and upper femoral vein. 2. No evidence for DVT within the right lower extremity imaged from the groin to the upper calf. [facility], , 08/31/2024 9:46 AM
[2024-08-31] MEDS: bisacodyL 10 MG SUPP RECTAL STA (10:14)
[2024-08-31 10:37] LABS: Glucose,Whole Blood 71 mg/dL (70-110)
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
[2024-08-31 15:22] LABS: INR 1.1 (<1.2); Partial Thromboplastin Time 27.7 sec (22.0-30.0); Prothrombin Time 12.1 sec (10.0-12.5)
[2024-08-31 15:23] LABS: HCT 31.6 % (39.0-53.0); HGB 10.9 gm/dL (13.0-17.5); MCH 29.5 pg (25.0-35.0); MCHC 34.6 g/dL (31.0-37.0); MCV 85.3 fL (80.0-100.0); Mean Platelet Volume 6.8; Platelet Count 290 k/uL (150-450); RDW 13.7 % (11.5-15.5); WBC 3.3 k/uL (3.8-10.6)
[2024-08-31] MEDS: HEPARIN SODIUM 1,000 UN/ML (10ML VL) IV ONE (15:45)
[2024-08-31] MEDS: HEPARIN SOD,PORK IN 0.45% NACL 25,000 UNIT in 0.45% NACL 1 250ML.BAG IV SCH (15:46)
[2024-08-31 16:22] LABS: Eosinophils # (M) 0.07 k/uL (0-0.7); Lymphocytes # (M) 0.36 k/uL (1.0-4.8); Monocytes # (M) 0.26 k/uL (0-1.0); Neutrophils # (M) 2.61 k/uL (1.3-7.7); Neutrophils % (M) 79 %; Nucleated Red Blood Cells 0 /100 WBC (0-0); Total Cells Counted 100
[2024-08-31 16:23] LABS: Poikilocytosis (M) Present
[2024-08-31] MEDS ORDERED: PANTOPRAZOLE 40 MG TABLET PO SCH (17:30)
[2024-08-31 18:57] LABS: Glucose,Whole Blood 169 mg/dL (70-110)
[2024-09-01] MEDS: SODIUM CHLORIDE 0.9% 1,000 ML IV SCH ×2 (00:31→23:30)
[2024-09-01 04:00] LABS: African American GFR (CKD) >90 (>60 ml/min/1.73 sqM); Non-African American GFR(CKD) >90 (>60 ml/min/1.73 sqM)
[2024-09-01] MEDS ORDERED: VANCOMYCIN TROUGH DUE 1 EACH MISC MISCELLANE ONE (05:00)
[2024-09-01 05:55] LABS: Glucose,Whole Blood 93 mg/dL (70-110)
[2024-09-01] MEDS: VANCOMYCIN TROUGH DUE 1 EACH MISC MISCELLANE ONE (07:00)
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
[2024-09-01] MEDS: VANCOMYCIN 1,250 MG in SODIUM CHLORIDE 0.9% 250 ML IVPB SCH (09:26)
[2024-09-01 09:33] LABS: HCT 30.8 % (39.6-50.0); HGB 10.2 g/dL (13.0-17.0); MCH 29.1 pg (27.0-32.0); MCHC 33.1 g/dL (32.0-37.0); MCV 87.7 FL (80.0-97.0); Mean Platelet Volume 9.5 FL (9.5-12.2); NRBC Per 100 WBC 0 X 10*3/uL (0.00-0.01); Platelet Count 269 X 10*3/uL (140-440); RBC 3.51 X 10*6/uL (4.40-5.60); RDW 13.3 % (11.5-14.5); WBC 3.91 X 10*3/uL (4.50-10.00)
[2024-09-01 09:40] LABS: African American GFR (CKD) >90 (>60 ml/min/1.73 sqM); Anion Gap 3 mmol/L; Blood Urea Nitrogen <2 mg/dL (9-20); Calcium 7.9 mg/dL (8.4-10.2); Carbon Dioxide 22 mmol/L (22-30); Chloride 105 mmol/L (98-107); Glucose 89 mg/dL (74-99); Non-African American GFR(CKD) >90 (>60 ml/min/1.73 sqM); Potassium 3.5 mmol/L (3.5-5.1); Sodium 130 mmol/L (137-145)
--- NOTE | 2024-09-01 10:07 | P.PN ---
Subjective Patient is seen in follow-up for hyponatremia. Sodium level up to 130 this morning. Per nurse, has been receiving normal saline. Denies chest pain or shortness of breath. Vital signs are stable. General: No acute distress. HEENT: Head exam is unremarkable. LUNGS: No audible rhonchi or wheezes. HEART: Rate and Rhythm are regular. ABDOMEN: Nontender. EXTREMITITES: No edema. Objective - Vital Signs Vital signs: Vital Signs Temp 97.6 F 09/01/24 08:21 Pulse 71 09/01/24 08:21 Resp 17 09/01/24 08:21 BP 168/81 09/01/24 08:21 Pulse Ox 94 L 09/01/24 08:21 FiO2 Intake & Output 08/31/24 09/01/24 09/01/24 18:59 06:59 18:59 Intake Total 313.89 Output Total 1999 450 Balance -1686.11 -450 Weight 61.25 kg Intake: Intake, IV Titration 73.89 Amount Heparin Sod,Pork in 0.45% 73.89 NaCl 25,000 unit In 0.45 % NaCl 1 250ml.bag @ 18 UNITS/KG/HR 12.247 mls/hr IV .[id number] [facility] Rx#: [id number] Oral 240 Output: Urine 1999 450 Uretheral (Sinclair) 900 Other: Voiding Method Indwelling Catheter # Bowel Movements 1 - Labs CBC & Chem 7: 09/01/24 02:45 09/01/24 09:13 Labs: Abnormal Lab Results - Last 24 Hours (Table) 08/31/24 08/31/24 08/31/24 Range/Units 05:13 12:42 14:59 WBC 3.3 L (3.8-10.6) k/uL RBC 3.70 L (4.30-5.90) m/uL Hgb 10.9 L (13.0-17.5) gm/dL Hct 31.6 L (39.0-53.0) % Lymphocytes # (Manual) 0.36 L (1.0-4.8) k/uL APTT (22.0-30.0) sec Sodium 126 L (137-145) mmol/L BUN (9-20) mg/dL Creatinine (0.66-1.25) mg/dL POC Glucose (mg/dL) (70-110) mg/dL Osmolality 259 L (275-295) mOsm/kg Calcium (8.4-10.2) mg/dL 08/31/24 08/31/24 09/01/24 Range/Units 18:55 20:27 02:45 WBC (3.8-10.6) k/uL RBC (4.30-5.90) m/uL Hgb (13.0-17.5) gm/dL Hct (39.0-53.0) % Lymphocytes # (Manual) (1.0-4.8) k/uL APTT >200.0 H* (22.0-30.0) sec Sodium (137-145) mmol/L BUN (9-20) mg/dL Creatinine 0.33 L (0.66-1.25) mg/dL POC Glucose (mg/dL) 169 H (70-110) mg/dL Osmolality (275-295) mOsm/kg Calcium (8.4-10.2) mg/dL 09/01/24 09/01/24 09/01/24 Range/Units 02:45 02:45 09:13 WBC 3.91 L (3.8-10.6) k/uL RBC 3.51 L (4.30-5.90) m/uL Hgb 10.2 L (13.0-17.5) gm/dL Hct 30.8 L (39.0-53.0) % Lymphocytes # (Manual) (1.0-4.8) k/uL APTT (22.0-30.0) sec Sodium 128 L 130 L (137-145) mmol/L BUN <2 L (9-20) mg/dL Creatinine 0.34 L (0.66-1.25) mg/dL POC Glucose (mg/dL) (70-110) mg/dL Osmolality (275-295) mOsm/kg Calcium 7.9 L (8.4-10.2) mg/dL Microbiology - Last 24 Hours (Table) 08/30/24 17:29 Urine Culture - Preliminary Urine,Clean Catch Assessment and Plan Plan: Assessment: 1. Hypovolemic hyponatremia improved with normal saline. Sodium level 114 dated August 30, 2024 at 5:29 PM. Up to 130 this morning. TSH normal. Cortisol level not low. 2. Neurogenic bladder with chronic Sinclair catheter. 3. Rectosigmoid colon wall thickening infectious versus inflammatory. 4. History of paraplegia. Plan: Stop normal saline. Start D5W at 150 cc an hour to slow correction of hyponatremia. Urine studies still not done. Will reorder again. Repeat sodium level this afternoon.
[2024-09-01] MEDS: DEXTROSE 5% IN WATER 1,000 ML IV ONE ×2 (11:05→21:25)
[2024-09-01 11:21] LABS: Basophils # (A) 0.03 X 10*3/uL (0.00-0.10); Basophils % (A) 0.8 %; Crenated RBC 2+; Eosinophils # (A) 0.05 X 10*3/uL (0.04-0.35); Eosinophils % (A) 1.3 %; Lymphocytes # (A) 1.01 X 10*3/uL (0.90-5.00); Lymphocytes % (A) 25.8 %; Monocytes # (A) 0.64 X 10*3/uL (0.20-1.00); Monocytes % (A) 16.4 %; Neutrophils # (A) 2.17 X 10*3/uL (1.80-7.70); Neutrophils % (A) 55.4 %
[2024-09-01 11:55] LABS: Glucose,Whole Blood 105 mg/dL (70-110)
[2024-09-01] MEDS: ACETAMINOPHEN TAB 325 MG TAB PO PRN (12:44)
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
--- NOTE | 2024-09-01 16:57 | P.GSCN ---
History of Present Illness Consult date: 09/01/24 History of present illness: CHIEF COMPLAINT: Hemorrhoids HISTORY OF PRESENT ILLNESS: The patient is a 68-year-old male who initially was brought in for urinary tract infection. Patient is a quadriplegic. He denies sensation of the lower extremities. He does report chronic diarrhea for the last 2 days. Additionally, he reports avoiding eating any food to avoid exac erbation of his diarrhea. No prior colonoscopy. Denies blood in stools. Patient had been started on heparin drip due to left lower extremity DVT. While he was being checked by the nurse, blood was noted in his stool with hemorrhoids. General surgery is consulted for hemorrhoids. Patient had been on antibiotics overlapping his diarrhea symptoms. PAST MEDICAL HISTORY: See list and reviewed PAST SURGICAL HISTORY: See list and reviewed MEDICATIONS: See list and reviewed ALLERGIES: See list and reviewed SOCIAL HISTORY: See list and reviewed FAMILY HISTORY: See list and reviewed REVIEW OF ORGAN SYSTEMS: CONSTITUTIONAL: No fevers or chills. No recent weight loss. EYES: Denies any trouble with vision. No glasses. HEENT: No difficulties with hearing. No nosebleeds. No difficulty swallowing. RESPIRATORY: Denies pneumonia. Denies any troubles with breathing or dyspnea on exertion. CARDIOVASCULAR: Denies any chest pain, palpitations, or recent heart attacks. GASTROINTESTINAL: Chronic diarrhea. GENITOURINARY: Indwelling catheter. Chronic kidney stones. Recent urinary t ract infection. NEUROLOGICAL: Denies any numbness or tingling along the distal extremities. No seizure disorders or headaches. MUSCULOSKELETAL: Quadriplegia SKIN: No current skin cancer. No rash. PSYCHIATRIC: Denies current depression or suicidal thoughts. ENDOCRINE: Denies current thyroid disorders. Denies any blood sugar glucose intolerance. HEME/LYMPHATIC: Denies any lumps and bumps around the neck. No recent deep venous thrombosis. ALLERGY/IMMUNOLOGY: No immunoglobulin therapy. No immune deficiencies. BREAST: Denies current breast lumps, pain or nipple discharge. PHYSICAL EXAM: VITALS: Reviewed CONSTITUTIONAL: Well developed and in no acute distress. EYES: Conjuctivae without sclera icterus. Extraocular movements grossly intact. HEAD, EARS, NOSE, THROAT: Moist buccal mucosa. Head is atraumatic, normocephalic. Hears conversational speech. No nasal drainage. NECK: Supple. No JV distention. No thyroidomegaly. RESPIRATORY: Non-labored respirations and equal bilateral excursions. No gross wheezes. CARDIOVASCULAR: Palpable 2+ radial pulses. ABDOMEN: Scaphoid. LYMPH: No neck lymphadenopathy. MUSCULOSKELETAL: Quadriplegia with swelling of the left lower extremity inclu ding foot greater than the right. SKIN: Warm and well perfused with good skin turgor. NEUROLOGIC: Cranial nerves II through XII grossly intact. Quadriplegia. PSYCH: Appropriate affect. Alert and oriented to person, place and time. Displays appropriate insight. CLINCAL LABS: Reviewed. Leukopenia white blood cell count less than 5.0. Electrolytes, sodium less than 130 hyponatremia. Initial sodium 114 on admission. IMAGING: Independently reviewed. CT of the abdomen pelvis independently re viewed demonstrate thickening along the rectosigmoid junction to the rectum. Gaseous distention of the colon including small bowel. No moderate fecal retention involving more than 70% of the colon identified. This is my independent interpretation. RADIOLOGY: Report reviewed. DVT demonstrates left lower extremity DVT at the common femoral vein. RECORDS: previous old records reviewed demonstrating procedures for renal calculi. ASSESSMENT: 1. Chronic diarrhea 2. Abnormal CT scan of rectosigmoid thickening 3. Clinical history hemorrhoids 4. Quadriplegia 5. Hyponatremia 6. Acute left lower extremity DVT PLAN: 1. Recommend adjust diet to low fiber diet for recent diarrhea. 2. Patient presents with acute hyponatremia and electrolyte dyscrasias. Colonoscopy not advised at this time. 3. As patient is being treated for acute DVT, bleeding with hemorrhoids may occur. Symptomatic treatment with suppositories may be of benefit. 4. At some point, may benefit from colonoscopy however once electrolyte dyscrasias are corrected. 5. Shared decision making performed where patient may have diet as he has not had a meal in over 2 days. ADVANCE DIRECTIVE: CODE STATUS in chart. Thank you for this kind consultation. Past Medical History Past Medical History: Neurologic Disorder Additional Past Medical History / Comment(s): BLADDER STONE -FREQUENT UTI'S. QUADRIPLEGIC - FRACTURE OF C6 AND C7. History of Any Multi-Drug Resistant Organisms: Other MDRO Past Surgical History: Hernia Repair Additional Past Surgical History / Comment(s): LITHROTRIPSY, stone in bladder removed. Past Anesthesia/Blood Transfusion Reactions: No Reported Reaction Past Psychological History: No Psychological Hx Reported Smoking Status: Never smoker Past Alcohol Use History: None Reported Past Drug Use History: Marijuana - Past Family History Mother Family Medical History: No Reported History Additional Family Medical History / Comment(s): . Medications and Allergies Home Medications Medication Instructions Recorded Confirmed Type Sulfamethox-Tmp 800-160Mg [Bactrim 1 tab PO BID 08/30/24 08/30/24 History DS 800-160 mg] Allergies Allergy/AdvReac Type Severity Reaction Status Date / Time No Known Allergies Allergy Verified 08/30/24 19:56 Surgical - Exam Vital Signs Temp Pulse Resp BP Pulse Ox 97.8 F 71 20 131/90 100 08/30/24 16:32 08/30/24 16:32 08/30/24 16:32 08/30/24 16:32 08/30/24 16:32 Results - Labs 09/01/24 02:45 09/01/24 14:10 Abnormal Lab Results - Last 24 Hours (Table) 08/31/24 08/31/24 09/01/24 Range/Units 18:55 20:27 02:45 WBC (4.50-10.00) X 10*3/uL RBC (4.40-5.60) X 10*6/uL Hgb (13.0-17.0) g/dL Hct (39.6-50.0) % Crenated Cell APTT >200.0 H* (22.0-30.0) sec Sodium (137-145) mmol/L BUN (9-20) mg/dL Creatinine 0.33 L (0.66-1.25) mg/dL POC Glucose (mg/dL) 169 H (70-110) mg/dL Calcium (8.4-10.2) mg/dL 09/01/24 09/01/24 09/01/24 Range/Units 02:45 02:45 09:13 WBC 3.91 L (4.50-10.00) X 10*3/uL RBC 3.51 L (4.40-5.60) X 10*6/uL Hgb 10.2 L (13.0-17.0) g/dL Hct 30.8 L (39.6-50.0) % Crenated Cell 2+ A APTT (22.0-30.0) sec Sodium 128 L 130 L (137-145) mmol/L BUN <2 L (9-20) mg/dL Creatinine 0.34 L (0.66-1.25) mg/dL POC Glucose (mg/dL) (70-110) mg/dL Calcium 7.9 L (8.4-10.2) mg/dL 09/01/24 Range/Units 14:10 WBC (4.50-10.00) X 10*3/uL RBC (4.40-5.60) X 10*6/uL Hgb (13.0-17.0) g/dL Hct (39.6-50.0) % Crenated Cell APTT (22.0-30.0) sec Sodium 128 L (137-145) mmol/L BUN (9-20) mg/dL Creatinine (0.66-1.25) mg/dL POC Glucose (mg/dL) (70-110) mg/dL Calcium (8.4-10.2) mg/dL Microbiology - Last 24 Hours (Table) 08/31/24 07:50 Blood Culture - Preliminary Blood 08/30/24 17:29 Urine Culture - Preliminary Urine,Clean Catch Diabetes panel 09/01/24 09/01/24 09/01/24 Range/Units 02:45 02:45 09:13 Sodium 128 L 130 L (137-145) mmol/L Potassium 3.5 (3.5-5.1) mmol/L Chloride 105 (98-107) mmol/L Carbon Dioxide 22 (22-30) mmol/L BUN <2 L (9-20) mg/dL Creatinine 0.33 L 0.34 L (0.66-1.25) mg/dL Glucose 89 (74-99) mg/dL Calcium 7.9 L (8.4-10.2) mg/dL 09/01/24 Range/Units 14:10 Sodium 128 L (137-145) mmol/L Potassium (3.5-5.1) mmol/L Chloride (98-107) mmol/L Carbon Dioxide (22-30) mmol/L BUN (9-20) mg/dL Creatinine (0.66-1.25) mg/dL Glucose (74-99) mg/dL Calcium (8.4-10.2) mg/dL Calcium panel 09/01/24 Range/Units 09:13 Calcium 7.9 L (8.4-10.2) mg/dL Pituitary panel 09/01/24 09/01/24 09/01/24 Range/Units 02:45 02:45 09:13 Sodium 128 L 130 L (137-145) mmol/L Potassium 3.5 (3.5-5.1) mmol/L Chloride 105 (98-107) mmol/L Carbon Dioxide 22 (22-30) mmol/L BUN <2 L (9-20) mg/dL Creatinine 0.33 L 0.34 L (0.66-1.25) mg/dL Glucose 89 (74-99) mg/dL Calcium 7.9 L (8.4-10.2) mg/dL 09/01/24 Range/Units 14:10 Sodium 128 L (137-145) mmol/L Potassium (3.5-5.1) mmol/L Chloride (98-107) mmol/L Carbon Dioxide (22-30) mmol/L BUN (9-20) mg/dL Creatinine (0.66-1.25) mg/dL Glucose (74-99) mg/dL Calcium (8.4-10.2) mg/dL Adrenal panel 09/01/24 09/01/24 09/01/24 Range/Units 02:45 02:45 09:13 Sodium 128 L 130 L (137-145) mmol/L Potassium 3.5 (3.5-5.1) mmol/L Chloride 105 (98-107) mmol/L Carbon Dioxide 22 (22-30) mmol/L BUN <2 L (9-20) mg/dL Creatinine 0.33 L 0.34 L (0.66-1.25) mg/dL Glucose 89 (74-99) mg/dL Calcium 7.9 L (8.4-10.2) mg/dL 09/01/24 Range/Units 14:10 Sodium 128 L (137-145) mmol/L Potassium (3.5-5.1) mmol/L Chloride (98-107) mmol/L Carbon Dioxide (22-30) mmol/L BUN (9-20) mg/dL Creatinine (0.66-1.25) mg/dL Glucose (74-99) mg/dL Calcium (8.4-10.2) mg/dL
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
[2024-09-01] MEDS: VANCOMYCIN 1,000 MG in SODIUM CHLORIDE 0.9% 250 ML IVPB SCH (18:07)
[2024-09-01 18:36] LABS: Glucose,Whole Blood 154 mg/dL (70-110)
[2024-09-01 19:43] LABS: African American GFR (CKD) >90 (>60 ml/min/1.73 sqM); Anion Gap 2 mmol/L; Blood Urea Nitrogen <2 mg/dL (9-20); Calcium 7.9 mg/dL (8.4-10.2); Carbon Dioxide 21 mmol/L (22-30); Chloride 108 mmol/L (98-107); Glucose 148 mg/dL (74-99); Non-African American GFR(CKD) >90 (>60 ml/min/1.73 sqM); Potassium 3.9 mmol/L (3.5-5.1); Sodium 131 mmol/L (137-145)
[2024-09-01 21:59] LABS: African American GFR (CKD) >90 (>60 ml/min/1.73 sqM); Anion Gap 2 mmol/L; Blood Urea Nitrogen 3 mg/dL (9-20); Calcium 7.7 mg/dL (8.4-10.2); Carbon Dioxide 23 mmol/L (22-30); Chloride 107 mmol/L (98-107); Glucose 120 mg/dL (74-99); Non-African American GFR(CKD) >90 (>60 ml/min/1.73 sqM); Sodium 132 mmol/L (137-145)
[2024-09-01] MEDS: PANTOPRAZOLE 40 MG/10 ML VIAL IVP SCH (22:11)
[2024-09-02 00:05] LABS: Glucose,Whole Blood 129 mg/dL (70-110)
[2024-09-02] MEDS: HEPARIN SODIUM 1,000 UN/ML (10ML VL) IV PRN (00:40)
[2024-09-02 01:02] LABS: African American GFR (CKD) >90 (>60 ml/min/1.73 sqM); Anion Gap 1 mmol/L; Blood Urea Nitrogen 4 mg/dL (9-20); Calcium 7.8 mg/dL (8.4-10.2); Carbon Dioxide 21 mmol/L (22-30); Chloride 108 mmol/L (98-107); Glucose 119 mg/dL (74-99); Non-African American GFR(CKD) >90 (>60 ml/min/1.73 sqM); Potassium 3.8 mmol/L (3.5-5.1); Sodium 130 mmol/L (137-145)
[2024-09-02 06:18] LABS: Glucose,Whole Blood 99 mg/dL (70-110)
[2024-09-02 07:59] LABS: African American GFR (CKD) >90 (>60 ml/min/1.73 sqM); Anion Gap 3 mmol/L; Blood Urea Nitrogen 3 mg/dL (9-20); Calcium 7.9 mg/dL (8.4-10.2); Carbon Dioxide 22 mmol/L (22-30); Chloride 107 mmol/L (98-107); Glucose 92 mg/dL (74-99); Magnesium 1.5 mg/dL (1.6-2.3); Non-African American GFR(CKD) >90 (>60 ml/min/1.73 sqM); Potassium 3.5 mmol/L (3.5-5.1); Sodium 132 mmol/L (137-145)
[2024-09-02 09:00] LABS: HCT 29.3 % (39.6-50.0); MCH 30.4 pg (27.0-32.0); MCHC 34.1 g/dL (32.0-37.0); MCV 89.1 FL (80.0-97.0); Mean Platelet Volume 9.7 FL (9.5-12.2); NRBC Per 100 WBC 0 X 10*3/uL (0.00-0.01); Platelet Count 260 X 10*3/uL (140-440); RBC 3.29 X 10*6/uL (4.40-5.60); RDW 13.5 % (11.5-14.5); WBC 3.89 X 10*3/uL (4.50-10.00)
--- NOTE | 2024-09-02 09:56 | P.PN ---
Subjective Patient is seen in follow-up for hyponatremia. Sodium level up to 132 this morning. He did receive D5W yesterday for a few hours to slow the correction of hyponatremia. No active complaints. Vital signs are stable. General: No acute distress. HEENT: Head exam is unremarkable. LUNGS: No audible rhonchi or wheezes. HEART: Rate and Rhythm are regular. ABDOMEN: Nontender. EXTREMITITES: No edema. Objective - Vital Signs Vital signs: Vital Signs Temp 97.9 F 09/02/24 07:22 Pulse 60 09/02/24 07:22 Resp 16 09/02/24 07:22 BP 151/90 09/02/24 07:22 Pulse Ox 97 09/02/24 07:22 FiO2 Intake & Output 09/01/24 09/02/24 09/02/24 18:59 06:59 18:59 Intake Total 0 825.375 84.901 Output Total 1400 Balance -1400 825.375 84.901 Weight 62.35 kg Intake: Intake, IV Titration 0 65.375 84.901 Amount Heparin Sod,Pork in 0.45% 0 65.375 84.901 NaCl 25,000 unit In 0.45 % NaCl 1 250ml.bag @ 18 UNITS/KG/HR 12.247 mls/hr IV .[id number] [facility] Rx#: [id number] Oral 760 Output: Urine 1400 Other: Voiding Method Indwelling Catheter Indwelling Catheter - Labs CBC & Chem 7: 09/02/24 06:00 09/02/24 06:47 Labs: Abnormal Lab Results - Last 24 Hours (Table) 09/01/24 09/01/24 09/01/24 Range/Units 02:45 13:46 14:10 WBC (4.50-10.00) X 10*3/uL RBC (4.40-5.60) X 10*6/uL Hgb (13.0-17.0) g/dL Hct (39.6-50.0) % Crenated Cell 2+ A APTT (22.0-30.0) sec Sodium 128 L (137-145) mmol/L Chloride (98-107) mmol/L Carbon Dioxide (22-30) mmol/L BUN (9-20) mg/dL Creatinine (0.66-1.25) mg/dL Glucose (74-99) mg/dL POC Glucose (mg/dL) (70-110) mg/dL Calcium (8.4-10.2) mg/dL Magnesium (1.6-2.3) mg/dL Urine Osmolality 338 L (400-1100) mOsm/kg 09/01/24 09/01/24 09/01/24 Range/Units 18:11 18:33 21:26 WBC (4.50-10.00) X 10*3/uL RBC (4.40-5.60) X 10*6/uL Hgb (13.0-17.0) g/dL Hct (39.6-50.0) % Crenated Cell APTT (22.0-30.0) sec Sodium 131 L 132 L (137-145) mmol/L Chloride 108 H (98-107) mmol/L Carbon Dioxide 21 L (22-30) mmol/L BUN <2 L 3 L (9-20) mg/dL Creatinine 0.36 L 0.41 L (0.66-1.25) mg/dL Glucose 148 H 120 H (74-99) mg/dL POC Glucose (mg/dL) 154 H (70-110) mg/dL Calcium 7.9 L 7.7 L (8.4-10.2) mg/dL Magnesium (1.6-2.3) mg/dL Urine Osmolality (400-1100) mOsm/kg 09/01/24 09/02/24 09/02/24 Range/Units 23:14 00:03 00:08 WBC (4.50-10.00) X 10*3/uL RBC (4.40-5.60) X 10*6/uL Hgb (13.0-17.0) g/dL Hct (39.6-50.0) % Crenated Cell APTT 30.2 H (22.0-30.0) sec Sodium 130 L (137-145) mmol/L Chloride 108 H (98-107) mmol/L Carbon Dioxide 21 L (22-30) mmol/L BUN 4 L (9-20) mg/dL Creatinine 0.38 L (0.66-1.25) mg/dL Glucose 119 H (74-99) mg/dL POC Glucose (mg/dL) 129 H (70-110) mg/dL Calcium 7.8 L (8.4-10.2) mg/dL Magnesium (1.6-2.3) mg/dL Urine Osmolality (400-1100) mOsm/kg 09/02/24 09/02/24 09/02/24 Range/Units 06:00 06:47 06:47 WBC 3.89 L (4.50-10.00) X 10*3/uL RBC 3.29 L (4.40-5.60) X 10*6/uL Hgb 10.0 L (13.0-17.0) g/dL Hct 29.3 L (39.6-50.0) % Crenated Cell APTT >200.0 H* (22.0-30.0) sec Sodium 132 L (137-145) mmol/L Chloride (98-107) mmol/L Carbon Dioxide (22-30) mmol/L BUN 3 L (9-20) mg/dL Creatinine 0.33 L (0.66-1.25) mg/dL Glucose (74-99) mg/dL POC Glucose (mg/dL) (70-110) mg/dL Calcium 7.9 L (8.4-10.2) mg/dL Magnesium 1.5 L (1.6-2.3) mg/dL Urine Osmolality (400-1100) mOsm/kg Microbiology - Last 24 Hours (Table) 08/30/24 17:29 Urine Culture - Final Urine,Clean Catch 08/31/24 07:50 Blood Culture - Preliminary Blood Assessment and Plan Plan: Assessment: 1. Hypovolemic hyponatremia improved with normal saline. Sodium level 114 dated August 30, 2024 at 5:29 PM. Up to 132 this morning. Status post D5W September 01, 2024 to slow the correction of hyponatremia. TSH normal. Cortisol level not low. Urine sodium 122 and urine osmolality 338. 2. Neurogenic bladder with chronic Sinclair catheter. 3. Rectosigmoid colon wall thickening infectious versus inflammatory. 4. History of paraplegia. Plan: Encouraged oral intake. Add 1500 cc fluid restriction.
[2024-09-02 10:10] LABS: Basophils # (A) 0.04 X 10*3/uL (0.00-0.10); Crenated RBC 3+; Eosinophils # (A) 0.13 X 10*3/uL (0.04-0.35); Eosinophils % (A) 3.3 %; Lymphocytes # (A) 1.07 X 10*3/uL (0.90-5.00); Lymphocytes % (A) 27.5 %; Monocytes # (A) 0.66 X 10*3/uL (0.20-1.00); Neutrophils # (A) 1.98 X 10*3/uL (1.80-7.70); Neutrophils % (A) 50.9 %
[2024-09-02] MEDS ORDERED: Magnesium Replacement Protocol 1 EACH MISC MISCELLANE PRN (10:41)
[2024-09-02] MEDS ORDERED: APIXABAN 5 MG TAB PO SCH (10:45)
[2024-09-02] MEDS: MAGNESIUM SULFATE-D5W PMX 1 GM in DEXTROSE/WATER 1 100ML.BAG IVPB SCH (11:11)
[2024-09-02 11:31] LABS: Glucose,Whole Blood 117 mg/dL (70-110)
[2024-09-02] MEDS: Apixaban Initiation Dose--VTE 5 MG TAB PO SCH (12:25)
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
--- NOTE | 2024-09-02 16:03 | P.PN ---
Subjective Progress Note Date: 09/02/24 CHIEF COMPLAINT: Hemorrhoids HISTORY OF PRESENT ILLNESS: The patient is a 68-year-old male who initially was brought in for urinary tract infection. Patient is a quadriplegic. General surgery was consulted for rectal bleeding due to hemorrhoids. Today, he reports doing well. He is tolerating low fiber diet. He denies any moderate diarrhea. Patient is being assessed by nephrology for chronic hyponatremia. REVIEW OF ORGAN SYSTEMS: No fevers or chills. No nausea and vomiting. Paraplegic. PHYSICAL EXAM: VITALS: Reviewed CONSTITUTIONAL: Well developed and in no acute distress. EYES: Conjuctivae without sclera icterus. Extraocular movements grossly intact. HEAD, EARS, NOSE, THROAT: Moist buccal mucosa. Head is atraumatic, normocephalic. Hears conversational speech. No nasal drainage. RESPIRATORY: Non-labored respirations and equal bilateral excursions. No gross wheezes. CARDIOVASCULAR: Palpable 2+ radial pulses. ABDOMEN: Scaphoid. Nontender. MUSCULOSKELETAL: Quadriplegia with swelling of the left lower extremity including foot greater than the right. SKIN: Warm and well perfused with good skin turgor. NEUROLOGIC: Cranial nerves II through XII grossly intact. Quadriplegia. PSYCH: Appropriate affect. Alert and oriented to person, place and time. Displays appropriate insight. CLINCAL LABS: Reviewed. Stool C. difficile negative. Stool cultures pending. Occult blood negative. Magnesium low 1.5. ASSESSMENT: 1. Chronic diarrhea 2. Abnormal CT scan of rectosigmoid thickening 3. Clinical history hemorrhoids 4. Quadriplegia 5. Hyponatremia 6. Acute left lower extremity DVT 7. Hemorrhoids 8. Hypomagnesia PLAN: 1. Patient stool occult is negative for blood. No acute colonoscopy while inpatient needed at this time. 2. Patient's diarrhea has resolved. Continue low fiber diet. 3. Continue correction of hyponatremia. 4. Magnesium supplementation for hypomagnesia advised. Objective - Vital Signs Vital signs: Vital Signs Temp 98.1 F 09/02/24 14:29 Pulse 60 09/02/24 14:29 Resp 16 09/02/24 14:29 BP 138/77 09/02/24 14:29 Pulse Ox 97 09/02/24 14:29 FiO2 Intake & Output 09/01/24 09/02/24 09/02/24 18:59 06:59 18:59 Intake Total 0 825.375 84.901 Output Total 1400 Balance -1400 825.375 84.901 Weight 62.35 kg Intake: Intake, IV Titration 0 65.375 84.901 Amount Heparin Sod,Pork in 0.45% 0 65.375 84.901 NaCl 25,000 unit In 0.45 % NaCl 1 250ml.bag @ 18 UNITS/KG/HR 12.247 mls/hr IV .[id number] [facility] Rx#: [id number] Oral 760 Output: Urine 1400 Other: Voiding Method Indwelling Catheter Indwelling Catheter - Labs CBC & Chem 7: 09/02/24 06:00 09/02/24 06:47 Labs: Abnormal Lab Results - Last 24 Hours (Table) 09/01/24 09/01/24 09/01/24 Range/Units 13:46 18:11 18:33 WBC (4.50-10.00) X 10*3/uL RBC (4.40-5.60) X 10*6/uL Hgb (13.0-17.0) g/dL Hct (39.6-50.0) % Crenated Cell APTT (22.0-30.0) sec Sodium 131 L (137-145) mmol/L Chloride 108 H (98-107) mmol/L Carbon Dioxide 21 L (22-30) mmol/L BUN <2 L (9-20) mg/dL Creatinine 0.36 L (0.66-1.25) mg/dL Glucose 148 H (74-99) mg/dL POC Glucose (mg/dL) 154 H (70-110) mg/dL Calcium 7.9 L (8.4-10.2) mg/dL Magnesium (1.6-2.3) mg/dL Urine Osmolality 338 L (400-1100) mOsm/kg 09/01/24 09/01/24 09/02/24 Range/Units 21:26 23:14 00:03 WBC (4.50-10.00) X 10*3/uL RBC (4.40-5.60) X 10*6/uL Hgb (13.0-17.0) g/dL Hct (39.6-50.0) % Crenated Cell APTT 30.2 H (22.0-30.0) sec Sodium 132 L (137-145) mmol/L Chloride (98-107) mmol/L Carbon Dioxide (22-30) mmol/L BUN 3 L (9-20) mg/dL Creatinine 0.41 L (0.66-1.25) mg/dL Glucose 120 H (74-99) mg/dL POC Glucose (mg/dL) 129 H (70-110) mg/dL Calcium 7.7 L (8.4-10.2) mg/dL Magnesium (1.6-2.3) mg/dL Urine Osmolality (400-1100) mOsm/kg 09/02/24 09/02/24 09/02/24 Range/Units 00:08 06:00 06:47 WBC 3.89 L (4.50-10.00) X 10*3/uL RBC 3.29 L (4.40-5.60) X 10*6/uL Hgb 10.0 L (13.0-17.0) g/dL Hct 29.3 L (39.6-50.0) % Crenated Cell 3+ A APTT (22.0-30.0) sec Sodium 130 L 132 L (137-145) mmol/L Chloride 108 H (98-107) mmol/L Carbon Dioxide 21 L (22-30) mmol/L BUN 4 L 3 L (9-20) mg/dL Creatinine 0.38 L 0.33 L (0.66-1.25) mg/dL Glucose 119 H (74-99) mg/dL POC Glucose (mg/dL) (70-110) mg/dL Calcium 7.8 L 7.9 L (8.4-10.2) mg/dL Magnesium 1.5 L (1.6-2.3) mg/dL Urine Osmolality (400-1100) mOsm/kg 09/02/24 09/02/24 Range/Units 06:47 11:30 WBC (4.50-10.00) X 10*3/uL RBC (4.40-5.60) X 10*6/uL Hgb (13.0-17.0) g/dL Hct (39.6-50.0) % Crenated Cell APTT >200.0 H* (22.0-30.0) sec Sodium (137-145) mmol/L Chloride (98-107) mmol/L Carbon Dioxide (22-30) mmol/L BUN (9-20) mg/dL Creatinine (0.66-1.25) mg/dL Glucose (74-99) mg/dL POC Glucose (mg/dL) 117 H (70-110) mg/dL Calcium (8.4-10.2) mg/dL Magnesium (1.6-2.3) mg/dL Urine Osmolality (400-1100) mOsm/kg Microbiology - Last 24 Hours (Table) 08/31/24 07:50 Blood Culture - Preliminary Blood 08/30/24 17:29 Urine Culture - Final Urine,Clean Catch
[2024-09-02 16:45] LABS: Glucose,Whole Blood 130 mg/dL (70-110)
[2024-09-02] MEDS: VANCOMYCIN TROUGH DUE 1 EACH MISC MISCELLANE ONE (17:31)
[2024-09-02 20:43] LABS: Glucose,Whole Blood 131 mg/dL (70-110)
[2024-09-03] MEDS: VANCOMYCIN 750 MG in SODIUM CHLORIDE 0.9% 250 ML IVPB SCH (05:08)
[2024-09-03 06:24] LABS: Glucose,Whole Blood 93 mg/dL (70-110)
[2024-09-03 08:48] LABS: BUN/Creat Ratio 15.33 Ratio (12.00-20.00); Blood Urea Nitrogen 4.6 mg/dL (9.0-27.0); Calcium 7.8 mg/dL (8.7-10.3); Carbon Dioxide 22.3 mmol/L (21.6-31.8); Chloride 110 mmol/L (96-109); Glucose 105 mg/dL (70-110); Magnesium 1.8 mg/dL (1.5-2.4); Potassium 3.9 mmol/L (3.5-5.5); Sodium 139 mmol/L (135-145)
--- NOTE | 2024-09-03 10:55 | P.PN ---
Subjective Patient is seen in follow-up for hyponatremia. Sodium level 139 today. Resting in bed. No active complaints. Vital signs are stable. General: No acute distress. HEENT: Head exam is unremarkable. LUNGS: No audible rhonchi or wheezes. HEART: Rate and Rhythm are regular. ABDOMEN: Nontender. EXTREMITITES: No edema. Objective - Vital Signs Vital signs: Vital Signs Temp 97.6 F 09/03/24 02:00 Pulse 65 09/03/24 02:00 Resp 14 09/03/24 02:00 BP 132/83 09/03/24 02:00 Pulse Ox 96 09/03/24 02:00 FiO2 Intake & Output 09/02/24 09/03/24 09/03/24 18:59 06:59 18:59 Intake Total 84.901 540 Output Total 1200 700 900 Balance -1115.099 -160 -900 Intake: Intake, IV Titration 84.901 Amount Heparin Sod,Pork in 0.45% 84.901 NaCl 25,000 unit In 0.45 % NaCl 1 250ml.bag @ 18 UNITS/KG/HR 12.247 mls/hr IV .[id number] [facility] Rx#: [id number] Oral 540 Output: Urine 1200 700 900 Other: Voiding Method Indwelling Catheter Indwelling Catheter Indwelling Catheter - Labs CBC & Chem 7: 09/02/24 06:00 09/03/24 02:30 Labs: Abnormal Lab Results - Last 24 Hours (Table) 09/02/24 09/02/24 09/02/24 Range/Units 11:30 16:44 20:42 Chloride (96-109) mmol/L BUN (9.0-27.0) mg/dL Creatinine (0.6-1.5) mg/dL POC Glucose (mg/dL) 117 H 130 H 131 H (70-110) mg/dL Calcium (8.7-10.3) mg/dL 09/03/24 Range/Units 02:30 Chloride 110 H (96-109) mmol/L BUN 4.6 L (9.0-27.0) mg/dL Creatinine 0.3 L (0.6-1.5) mg/dL POC Glucose (mg/dL) (70-110) mg/dL Calcium 7.8 L (8.7-10.3) mg/dL Microbiology - Last 24 Hours (Table) 08/31/24 07:50 Blood Culture - Preliminary Blood Assessment and Plan Plan: Assessment: 1. Hypovolemic hyponatremia improved with normal saline. Sodium level 139 today. Status post D5W September 01, 2024 to slow the correction of hyponatre feliz. TSH normal. Cortisol level not low. Urine sodium 122 and urine osmolality 338. 2. Neurogenic bladder with chronic Sinclair catheter. 3. Rectosigmoid colon wall thickening infectious versus inflammatory. 4. History of paraplegia. Plan: Encouraged oral intake.
[2024-09-03 11:05] VITALS: BP 156/86; PULSE 66; RESP 18; TEMP 98
[2024-09-03 11:43] LABS: Glucose,Whole Blood 100 mg/dL (70-110)
[2024-09-03] MEDS ORDERED: ACETAMINOPHEN TAB 325 MG TAB PO PRN (12:04)
--- NOTE | 2024-09-03 12:35 | P.PN ---
Subjective Progress Note Date: 09/03/24 CHIEF COMPLAINT: Hemorrhoids HISTORY OF PRESENT ILLNESS: The patient is a 68-year-old male who initially was brought in for urinary tract infection. Patient is a quadriplegic. General surgery was consulted for rectal bleeding due to hemorrhoids. No further bleeding reported. Denies any nausea or vomiting. Tolerating diet. Scheduled for discharge today. PHYSICAL EXAM: VITAL SIGNS: Reviewed GENERAL: Well-developed in no acute distress. HEENT: No sclera icterus. Extraocular movements grossly intact. Moist buccal mucosa. Head is atraumatic, normocephalic. Hears conversational speech. No nasal drainage. NECK: Supple without lymphadenopathy. CHEST: Non-labored respirations and equal bilateral excursions. CARDIOVASCULAR: Palpable 2+ radial pulses. ABDOMEN: Soft. Nondistended. Nontender. MUSCULOSKELETAL: No clubbing or cyanosis. NEUROLOGIC: No focal or lateralizing signs. Cranial nerves II through XII grossly intact. PSYCH: Appropriate affect. Alert and oriented to person, place and time. SKIN: Well perfused. Good skin turgor. ASSESSMENT: 1. Chronic diarrhea 2. Abnormal CT scan of rectosigmoid thickening 3. Clinical history hemorrhoids 4. Quadriplegia 5. Hyponatremia 6. Acute left lower extremity DVT 7. Hemorrhoids 8. Hypomagnesia PLAN: -No plans for colonoscopy inpatient -Continue low fiber diet -Patient can be discharged from surgical standpoint -Recommend colonoscopy outpatient Physician Director Of Retail note has been reviewed by physician. Signing provider agrees with the documented findings, assessment, and plan of care. As above. Patient clinically improved. Diarrhea has resolved and he is tolerating diet. Stable for discharge. Objective - Vital Signs Vital signs: Vital Signs Temp 98.0 F 09/03/24 07:05 Pulse 66 09/03/24 07:05 Resp 18 09/03/24 07:05 BP 156/86 09/03/24 07:05 Pulse Ox 95 09/03/24 07:05 FiO2 Intake & Output 09/02/24 09/03/24 09/03/24 18:59 06:59 18:59 Intake Total 84.901 540 Output Total 1200 700 900 Balance -1115.099 -160 -900 Intake: Intake, IV Titration 84.901 Amount Heparin Sod,Pork in 0.45% 84.901 NaCl 25,000 unit In 0.45 % NaCl 1 250ml.bag @ 18 UNITS/KG/HR 12.247 mls/hr IV .[id number] [facility] Rx#: [id number] Oral 540 Output: Urine 1200 700 900 Other: Voiding Method Indwelling Catheter Indwelling Catheter Indwelling Catheter - Labs CBC & Chem 7: 09/02/24 06:00 09/03/24 02:30 Labs: Abnormal Lab Results - Last 24 Hours (Table) 09/02/24 09/02/24 09/03/24 Range/Units 16:44 20:42 02:30 Chloride 110 H (96-109) mmol/L BUN 4.6 L (9.0-27.0) mg/dL Creatinine 0.3 L (0.6-1.5) mg/dL POC Glucose (mg/dL) 130 H 131 H (70-110) mg/dL Calcium 7.8 L (8.7-10.3) mg/dL Microbiology - Last 24 Hours (Table) 08/31/24 07:50 Blood Culture - Preliminary Blood
--- NOTE | 2024-09-03 12:36 | P.PN ---
Subjective Progress Note Date: 09/02/24 Principal diagnosis: Reason for follow-up is a catheter associated UTI Patient is a 68-year-old male with a past medical history significant for quadriplegia fracture of C6 and C7 about 15 years ago did have neurogenic bladder with chronic indwelling Sinclair catheter presented to hospital with generalized bodyaches fever concerning for a catheter associated UTI with recent outpatient urine culture positive for E. coli Klebsiella and Enterococcus faecalis. On today's evaluation that is 09/02/2024, Patient is afebrile patient is currently on room air and denies having any shortness of breath, the patient denies any chest pain or cough, the patient denies any nausea vomiting did not have any abdominal pain and no diarrhea. Patient white count is 3.89, creatinine 0.33 Objective - Vital Signs Vital signs: Vital Signs Temp 97.9 F 09/02/24 07:22 Pulse 60 09/02/24 07:22 Resp 16 09/02/24 07:22 BP 151/90 09/02/24 07:22 Pulse Ox 97 09/02/24 07:22 FiO2 Intake & Output 09/01/24 09/02/24 09/02/24 18:59 06:59 18:59 Intake Total 0 825.375 84.901 Output Total 1400 Balance -1400 825.375 84.901 Weight 62.35 kg Intake: Intake, IV Titration 0 65.375 84.901 Amount Heparin Sod,Pork in 0.45% 0 65.375 84.901 NaCl 25,000 unit In 0.45 % NaCl 1 250ml.bag @ 18 UNITS/KG/HR 12.247 mls/hr IV .[id number] [facility] Rx#: [id number] Oral 760 Output: Urine 1400 Other: Voiding Method Indwelling Catheter Indwelling Catheter - Exam GENERAL DESCRIPTION: An elderly male lying in bed in no distress RESPIRATORY SYSTEM: Unlabored breathing , decreased breath sounds at bases HEART: S1 S2 regular rate and rhythm , ABDOMEN: Soft , no tenderness EXTREMITIES: No edema feet - Labs CBC & Chem 7: 09/02/24 06:00 09/03/24 02:30 Labs: Abnormal Lab Results - Last 24 Hours (Table) 09/01/24 09/01/24 09/01/24 Range/Units 02:45 13:46 14:10 WBC (4.50-10.00) X 10*3/uL RBC (4.40-5.60) X 10*6/uL Hgb (13.0-17.0) g/dL Hct (39.6-50.0) % Crenated Cell 2+ A APTT (22.0-30.0) sec Sodium 128 L (137-145) mmol/L Chloride (98-107) mmol/L Carbon Dioxide (22-30) mmol/L BUN (9-20) mg/dL Creatinine (0.66-1.25) mg/dL Glucose (74-99) mg/dL POC Glucose (mg/dL) (70-110) mg/dL Calcium (8.4-10.2) mg/dL Magnesium (1.6-2.3) mg/dL Urine Osmolality 338 L (400-1100) mOsm/kg 09/01/24 09/01/24 09/01/24 Range/Units 18:11 18:33 21:26 WBC (4.50-10.00) X 10*3/uL RBC (4.40-5.60) X 10*6/uL Hgb (13.0-17.0) g/dL Hct (39.6-50.0) % Crenated Cell APTT (22.0-30.0) sec Sodium 131 L 132 L (137-145) mmol/L Chloride 108 H (98-107) mmol/L Carbon Dioxide 21 L (22-30) mmol/L BUN <2 L 3 L (9-20) mg/dL Creatinine 0.36 L 0.41 L (0.66-1.25) mg/dL Glucose 148 H 120 H (74-99) mg/dL POC Glucose (mg/dL) 154 H (70-110) mg/dL Calcium 7.9 L 7.7 L (8.4-10.2) mg/dL Magnesium (1.6-2.3) mg/dL Urine Osmolality (400-1100) mOsm/kg 09/01/24 09/02/24 09/02/24 Range/Units 23:14 00:03 00:08 WBC (4.50-10.00) X 10*3/uL RBC (4.40-5.60) X 10*6/uL Hgb (13.0-17.0) g/dL Hct (39.6-50.0) % Crenated Cell APTT 30.2 H (22.0-30.0) sec Sodium 130 L (137-145) mmol/L Chloride 108 H (98-107) mmol/L Carbon Dioxide 21 L (22-30) mmol/L BUN 4 L (9-20) mg/dL Creatinine 0.38 L (0.66-1.25) mg/dL Glucose 119 H (74-99) mg/dL POC Glucose (mg/dL) 129 H (70-110) mg/dL Calcium 7.8 L (8.4-10.2) mg/dL Magnesium (1.6-2.3) mg/dL Urine Osmolality (400-1100) mOsm/kg 09/02/24 09/02/24 09/02/24 Range/Units 06:00 06:47 06:47 WBC 3.89 L (4.50-10.00) X 10*3/uL RBC 3.29 L (4.40-5.60) X 10*6/uL Hgb 10.0 L (13.0-17.0) g/dL Hct 29.3 L (39.6-50.0) % Crenated Cell 3+ A APTT >200.0 H* (22.0-30.0) sec Sodium 132 L (137-145) mmol/L Chloride (98-107) mmol/L Carbon Dioxide (22-30) mmol/L BUN 3 L (9-20) mg/dL Creatinine 0.33 L (0.66-1.25) mg/dL Glucose (74-99) mg/dL POC Glucose (mg/dL) (70-110) mg/dL Calcium 7.9 L (8.4-10.2) mg/dL Magnesium 1.5 L (1.6-2.3) mg/dL Urine Osmolality (400-1100) mOsm/kg Microbiology - Last 24 Hours (Table) 08/30/24 17:29 Urine Culture - Final Urine,Clean Catch 08/31/24 07:50 Blood Culture - Preliminary Blood Assessment and Plan (1) Colitis Current Visit: Yes Status: Acute Code(s): K52.9 - NONINFECTIVE GASTROE NTERITIS AND COLITIS, UNSPECIFIED SNOMED Code(s): 30507529 (2) Urinary tract infection Current Visit: No Status: Acute Code(s): N39.0 - URINARY TRACT INFECTION, SITE NOT SPECIFIED SNOMED Code(s): 65161561 Plan: 1patient presented to hospital with generalized bodyaches not feeling well concerning for catheter associated tach infection with a last urine culture done on 08/27/2024 has been positive for Klebsiella E. coli Enterococcus faecalis that was resistant to Bactrim DS which the patient was taking in the outpatient setting. 2patient also have abnormality seen on the CT abdominal pelvis concerning for possible proctocolitis patient denies significant diarrhea though the patient has been exposed to antibiotic, stool for C. difficile is negative 3patient did have some clinical improvement, will be treated with Rocephin and vancomycin while waiting for the culture to finalize and monitor clinical course closely Dictation was produced using [employer] dictation software. please excuse any grammatical, word or spelling errors. Time with Patient: Less than 30
--- NOTE | 2024-09-03 12:37 | P.PN ---
Subjective Progress Note Date: 09/03/24 Principal diagnosis: Reason for follow-up is a catheter associated UTI Patient is a 68-year-old male with a past medical history significant for quadriplegia fracture of C6 and C7 about 15 years ago did have neurogenic bladder with chronic indwelling Sinclair catheter presented to hospital with generalized bodyaches fever concerning for a catheter associated UTI with recent outpatient urine culture positive for E. coli Klebsiella and Enterococcus faecalis. On today's evaluation that is 09/03/2024 patient denies having any fever vomiting he is breathing comfortably room air no chest pain shortness with or cough no nausea vomiting no abdominal pain or diarrhea. Patient did have a creatinine 0.3 no CBC was done today blood and urine culture have been negative so far Objective - Vital Signs Vital signs: Vital Signs Temp 98.0 F 09/03/24 07:05 Pulse 66 09/03/24 07:05 Resp 18 09/03/24 07:05 BP 156/86 09/03/24 07:05 Pulse Ox 95 09/03/24 07:05 FiO2 Intake & Output 09/02/24 09/03/24 09/03/24 18:59 06:59 18:59 Intake Total 84.901 540 Output Total 1200 700 900 Balance -8390.095 -472 -013 Intake: Intake, IV Titration 84.901 Amount Heparin Sod,Pork in 0.45% 84.901 NaCl 25,000 unit In 0.45 % NaCl 1 250ml.bag @ 18 UNITS/KG/HR 12.247 mls/hr IV .[id number] [facility] Rx#: [id number] Oral 540 Output: Urine 1200 700 900 Other: Voiding Method Indwelling Catheter Indwelling Catheter Indwelling Catheter - Exam GENERAL DESCRIPTION: An elderly male lying in bed in no distress RESPIRATORY SYSTEM: Unlabored breathing , decreased breath sounds at bases HEART: S1 S2 regular rate and rhythm , ABDOMEN: Soft , no tenderness EXTREMITIES: No edema feet - Labs CBC & Chem 7: 09/02/24 06:00 09/03/24 02:30 Labs: Abnormal Lab Results - Last 24 Hours (Table) 09/02/24 09/02/24 09/02/24 Range/Units 11:30 16:44 20:42 Chloride (96-109) mmol/L BUN (9.0-27.0) mg/dL Creatinine (0.6-1.5) mg/dL POC Glucose (mg/dL) 117 H 130 H 131 H (70-110) mg/dL Calcium (8.7-10.3) mg/dL 09/03/24 Range/Units 02:30 Chloride 110 H (96-109) mmol/L BUN 4.6 L (9.0-27.0) mg/dL Creatinine 0.3 L (0.6-1.5) mg/dL POC Glucose (mg/dL) (70-110) mg/dL Calcium 7.8 L (8.7-10.3) mg/dL Microbiology - Last 24 Hours (Table) 08/31/24 07:50 Blood Culture - Preliminary Blood Assessment and Plan (1) Colitis Current Visit: Yes Status: Acute Code(s): K52.9 - NONINFECTIVE GASTROENTERITIS AND COLITIS, UNSPECIFIED SNOMED Code(s): 18248502 (2) Urinary tract infection Current Visit: No Status: Acute Code(s): N39.0 - URINARY TRACT INFECTION, SITE NOT SPECIFIED SNOMED Code(s): 21599249 Plan: 1patient presented to hospital with generalized bodyaches not feeling well concerning for catheter associated tach infection with a last urine culture done on 08/27/2024 has been positive for Klebsiella E. coli Enterococcus faecalis that was resistant to Bactrim DS which the patient was taking in the outpatient setting. 2patient also have abnormality seen on the CT abdominal pelvis concerning for possible proctocolitis patient denies significant diarrhea though the patient has been exposed to antibiotic, stool for C. difficile is negative 3patient did have some clinical improvement, urine culture have been negative, blood culture negative so far we will consider short course of oral Ceftin on discharge discussed with V[employer]ER for admitting team Dictation was produced using [employer] dictation software. please excuse any g rammatical, word or spelling errors. Time with Patient: Less than 30
[2024-09-04] MEDS ORDERED: VANCOMYCIN TROUGH DUE 1 EACH MISC MISCELLANE ONE (11:00)
== END 2024-09-03 13:46 | disposition home or self-care (01) | DRG 391 ==
LOC: EC 16:26 → 3SCARD 20:47 → 4SSUR 08-31 12:17
PROVIDERS: ADMIT Internal Medicine; ATTEND Internal Medicine
DX: K52.9 Noninfective gastroenteritis and colitis, unspecified (principal); G82.50 Quadriplegia, unspecified; T83.518A Infection and inflammatory reaction due to other urinary catheter, initial encounter; I82.402 Acute embolism and thrombosis of unspecified deep veins of left lower extremity; E87.1 Hypo-osmolality and hyponatremia; E86.1 Hypovolemia; E83.42 Hypomagnesemia; K59.00 Constipation, unspecified; N20.0 Calculus of kidney; N31.9 Neuromuscular dysfunction of bladder, unspecified; Y84.6 Urinary catheterization as the cause of abnormal reaction of the patient, or of later complication, without mention of misadventure at the time of the procedure; Z86.718 Personal history of other venous thrombosis and embolism; Z87.440 Personal history of urinary (tract) infections; Z87.828 Personal history of other (healed) physical injury and trauma; Z87.19 Personal history of other diseases of the digestive system; B95.2 Enterococcus as the cause of diseases classified elsewhere; B96.1 Klebsiella pneumoniae [K. pneumoniae] as the cause of diseases classified elsewhere; B96.20 Unspecified Escherichia coli [E. coli] as the cause of diseases classified elsewhere
CPT/HCPCS: 36415; 51702; 71046; 74177; 80048; 80053; 80202; 81001; 82040; 82247; 82272; 82533; 82565; 83605; 83735; 83880; 83930; 83935; 84075; 84155; 84295; 84300; 84443; 84450; 84460; 85025; 85610; 85730; 87040; 87086; 87324; 87636; 93005; 93970; 96361; 96365; 96366; 96367; 96368; 96375; 99291

== ENCOUNTER 2024-09-29 15:27 | Observation (INO) | payer MEDICARE ==
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
[2024-09-29 18:10] LABS: Basophils % (A) 0 %; Eosinophils % (A) 1 %; HCT 35.6 % (39.0-53.0); HGB 11.8 gm/dL (13.0-17.5); Lymphocytes # (A) 0.9 k/uL (1.0-4.8); Lymphocytes % (A) 13 %; MCH 29.1 pg (25.0-35.0); MCHC 33.2 g/dL (31.0-37.0); MCV 87.8 fL (80.0-100.0); Mean Platelet Volume 7.2; Monocytes # (A) 0.5 k/uL (0-1.0); Monocytes % (A) 7 %; Neutrophils # (A) 5.4 k/uL (1.3-7.7); Neutrophils % (A) 77 %; Platelet Count 251 k/uL (150-450); RBC 4.05 m/uL (4.30-5.90); RDW 13.7 % (11.5-15.5)
[2024-09-29 18:34] LABS: ALT 11 U/L (4-49); AST 20 U/L (17-59); African American GFR (CKD) >90 (>60 ml/min/1.73 sqM); Albumin 3.7 g/dL (3.5-5.0); Alkaline Phosphatase 225 U/L (38-126); Anion Gap 11 mmol/L; Blood Urea Nitrogen 7 mg/dL (9-20); Calcium 8.9 mg/dL (8.4-10.2); Carbon Dioxide 19 mmol/L (22-30); Chloride 98 mmol/L (98-107); Glucose 93 mg/dL (74-99); Non-African American GFR(CKD) >90 (>60 ml/min/1.73 sqM); Potassium 4.2 mmol/L (3.5-5.1); Sodium 128 mmol/L (137-145); Total Protein 6.7 g/dL (6.3-8.2)
[2024-09-29] MEDS ORDERED: NALOXONE 0.4 MG/ML 1 ML VIAL IV PRN (20:46)
[2024-09-29] MEDS: SODIUM CHLORIDE 0.9% 1,000 ML IV STA (20:57)
[2024-09-29] MEDS: SODIUM CHLORIDE 0.9% 1,000 ML IV SCH ×2 (21:28→21:30)
[2024-09-29] MEDS: SODIUM CHLORIDE 0.9% 500 ML 500 ML IV STA (21:29)
[2024-09-29] MEDS: MEROPENEM 2 GM in SODIUM CHLORIDE 0.9% 100 ML IVPB STA (21:29)
[2024-09-29 21:43] LABS: Amorphous Sediment,Urine Occasional /hpf; Appearance,Urine Clear (Clear); Bacteria,Urine Many /hpf; Bilirubin,Urine Negative (Negative); Blood,Urine Negative (Negative); Color,Urine Colorless; Glucose,Urine (UA) Negative (Negative); Ketones,Urine Negative (Negative); Leukocyte Esterase,Urine Small (Negative); Nitrite,Urine Negative (Negative); PH, Urine 6.5 (5.0-8.0); Protein,Urine Negative (Negative); RBC,Urine 1 /hpf (0-5); Specific Gravity,Urine 1.003 (1.001-1.035); Squamous Epithelial Cell,Urine <1 /hpf (0-4); Urobilinogen,Urine <2.0 mg/dL (<2.0); WBC,Urine 21 /hpf (0-5)
[2024-09-29] MEDS: ACETAMINOPHEN TAB 500 MG TAB PO STA (23:03)
[2024-09-30] MEDS: MEROPENEM 1 GM in SODIUM CHLORIDE 0.9% 100 ML IVPB SCH ×2 (10:04→20:30)
[2024-09-30] MEDS ORDERED: ACETAMINOPHEN TAB 500 MG TAB PO PRN (10:26)
[2024-09-30] MEDS ORDERED: MEROPENEM 1 GM in SODIUM CHLORIDE 0.9% 100 ML IVPB SCH (12:00)
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
[2024-09-30] MEDS: APIXABAN 5 MG TAB PO SCH (20:15)
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
[2024-10-01] MEDS: hydrALAZINE HCL 20 MG/ML 1 ML VIAL IVP PRN (08:33)
[2024-10-01 09:02] LABS: Calcium 8.4 mg/dL (8.7-10.3); Carbon Dioxide 20.8 mmol/L (21.6-31.8); Chloride 106 mmol/L (96-109); Glucose 89 mg/dL (70-110); Potassium 3.7 mmol/L (3.5-5.5); Sodium 136 mmol/L (135-145)
[2024-10-01 09:22] LABS: Basophils # (A) 0.03 X 10*3/uL (0.00-0.10); Basophils % (A) 0.6 %; Eosinophils # (A) 0.07 X 10*3/uL (0.04-0.35); Eosinophils % (A) 1.4 %; HCT 35.1 % (39.6-50.0); HGB 11.3 g/dL (13.0-17.0); Lymphocytes # (A) 1.51 X 10*3/uL (0.90-5.00); Lymphocytes % (A) 30.3 %; MCH 29.4 pg (27.0-32.0); MCHC 32.2 g/dL (32.0-37.0); MCV 91.4 FL (80.0-97.0); Mean Platelet Volume 10.1 FL (9.5-12.2); Monocytes % (A) 14.1 %; NRBC Per 100 WBC 0 X 10*3/uL (0.00-0.01); Neutrophils # (A) 2.65 X 10*3/uL (1.80-7.70); Neutrophils % (A) 53.2 %; Platelet Count 251 X 10*3/uL (140-440); RBC 3.84 X 10*6/uL (4.40-5.60); WBC 4.98 X 10*3/uL (4.50-10.00)
[2024-10-01] MEDS ORDERED: hydrALAZINE HCL 20 MG/ML 1 ML VIAL IVP PRN (11:56)
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
[2024-10-01] MEDS: CYCLOBENZAPRINE 10 MG TAB PO PRN (18:16)
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
[2024-10-02 19:56] VITALS: BP 131/81; PULSE 71; RESP 16; TEMP 98.2
== END 2024-10-02 21:25 | disposition home health service (06) ==
LOC: EC 15:27 → INTOOBSV 20:46 → 4SSUR 20:46 → 5NMEDONC 10-01 01:43
PROVIDERS: ADMIT Hospitalist; ATTEND Hospitalist
DX: T83.518A Infection and inflammatory reaction due to other urinary catheter, initial encounter (principal); N39.0 Urinary tract infection, site not specified; B96.5 Pseudomonas (aeruginosa) (mallei) (pseudomallei) as the cause of diseases classified elsewhere; E87.1 Hypo-osmolality and hyponatremia; G82.50 Quadriplegia, unspecified; N31.9 Neuromuscular dysfunction of bladder, unspecified; Y84.6 Urinary catheterization as the cause of abnormal reaction of the patient, or of later complication, without mention of misadventure at the time of the procedure; Z86.718 Personal history of other venous thrombosis and embolism; Z87.440 Personal history of urinary (tract) infections; Z87.442 Personal history of urinary calculi
CPT/HCPCS: 96361 ×3; 96366 ×4; 96375; 96365; 99284; 36415; 36410; 76937; 80053; 80048; 83605; 85025 ×2; 81001; 87040; 87086; 87077; 87186; G0378 ×4; C1751; J0360; J2185 ×4; 96367

== ENCOUNTER → 2025-03-08 | Outpatient (CLI) | payer MEDICARE ==
[2025-03-09 03:16] LABS: Blood Urea Nitrogen 10.2 mg/dL (9.0-27.0); Calcium 8.5 mg/dL (8.7-10.3); Carbon Dioxide 24.2 mmol/L (21.6-31.8); Chloride 97 mmol/L (96-109); Glucose 113 mg/dL (70-110); Potassium 4.8 mmol/L (3.5-5.5); Sodium 130 mmol/L (135-145)
== END | disposition home or self-care (01) ==
LOC: LABWHC1 15:28
PROVIDERS: ATTEND Nurse Practitioner Family
DX: E87.1 Hypo-osmolality and hyponatremia (principal)
CPT/HCPCS: 36415; 80048